=== PATIENT | male | born 1985 | race Caucasian/White ===

== ENCOUNTER 2022-11-26 10:05 | Outpatient (REF) | payer BC, SELFPAY | END 2022-11-26 10:06 | disposition home or self-care (01) | LOC: HO.LAB 10:05 | PROVIDERS: Visit Provider Nurse Practitioner Family | DX: Z13.89 Encounter for screening for other disorder (principal) ==

== ENCOUNTER 2022-12-01 07:03 | Outpatient (REF) | payer BC, OTHER, SELFPAY ==
[2022-12-01 11:31] LABS: MANUAL DIFF FLAG NO
[2022-12-01 11:41] LABS: Basophils Percent Auto 0.4 % (0-2); Eosinophils Absolute Auto 0.1 X10*3/uL (0.0-0.4); Eosinophils Percent Auto 1.2 % (0-4); Hematocrit 49.7 % (42.0-52.0); Hemoglobin 17.4 g/dl (14.0-18.0); Imm Gran Abs Auto 0.02 X10*3/uL (0.00-0.03); Imm Gran Pct Auto 0.3 % (0.0-0.4); Lymphocytes Absolute Auto 2.3 X10*3/uL (1.2-4.9); Lymphocytes Percent Auto 31.3 % (20-40); Mean Corpuscular Hemoglobin 29.7 pg (27.0-33.0); Mean Platelet Volume 9.3 fL (9.4-12.4); Monocytes Absolute Auto 0.7 X10*3/uL (0.1-1.2); Monocytes Percent Auto 9.4 % (2-11); Neutrophils Absolute Auto 4.1 x10*3/uL (2.0-8.3); Neutrophils Percent Auto 57.4 % (45-73); Platelet Count 271 X10*3/uL (160-400); Red Blood Count 5.85 X10*6/uL (4.60-5.80); Red Cell Distribution Width 12.9 % (11.0-16.0); White Blood Count 7.2 X10*3/uL (4.8-10.8)
[2022-12-01 12:01] LABS: Estimated Average Glucose 180 mg/dL; Hemoglobin A1c % 7.9 %
[2022-12-01 12:27] LABS: Anion Gap 11 (12-20)
[2022-12-01 12:32] LABS: Alanine Aminotransferase 57 U/L (0-40); Albumin Level 4.4 g/dL (3.5-5.0); Alkaline Phosphatase 80 U/L (39-117); Aspartate Amino Transferase 23 U/L (5-37); Bilirubin Total 1.1 mg/dL (0.0-1.0); Blood Urea Nitrogen 12 mg/dL (9-16); Calcium 9.2 mg/dL (8.4-10.2); Carbon Dioxide 27 mmol/L (22-29); Chloride 107 mmol/L (96-108); Cholesterol 195 mg/dL; Estimated Glomerular Filt Rate > 60; Glucose Fasting 124 mg/dL (60-99); HDL Cholesterol 32 mg/dL; LDL Cholesterol Calculated 137 mg/dl; Potassium 4.3 mmol/L (3.3-5.1); Sodium 141 mmol/L (135-145); Total Protein 6.6 g/dL (6.5-8.0); Triglycerides 131 mg/dL
== END 2022-12-01 07:04 | disposition home or self-care (01) ==
LOC: HO.WFDLDS 07:03
PROVIDERS: Visit Provider Nurse Practitioner Family
DX: E11.9 Type 2 diabetes mellitus without complications (principal)
CPT/HCPCS: 36415; 80053; 80061; 83036; 84443; 85025

== ENCOUNTER 2023-02-22 07:04 | Outpatient (REF) | payer BC, SELFPAY ==
[2023-02-22 12:01] LABS: Cholesterol 152 mg/dL; HDL Cholesterol 37 mg/dL; LDL Cholesterol Calculated 100 mg/dl; Triglycerides 77 mg/dL
== END 2023-02-22 07:05 | disposition home or self-care (01) ==
LOC: HO.WFDLDS 07:04
PROVIDERS: Visit Provider Nurse Practitioner Family
DX: E78.5 Hyperlipidemia, unspecified (principal)
CPT/HCPCS: 36415; 80061

== ENCOUNTER 2023-02-23 16:08 | Outpatient (AMB) | payer BC, SELFPAY ==
--- NOTE | 2023-02-23 16:10 | MHC.PC.OV ---
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: No Accompanied by: Self / Same As Patient Allergies Seasonal Allergies Allergy (Intermediate, Verified 02/23/23 16:24) Sneezing Medication List - Last Reconciled 02/23/23 by Emma Joshua CNP blood sugar diagnostic (FreeStyle Lite Strips) As directed TID blood-glucose meter (FreeStyle Lite Meter kit) As directed fenofibrate 120 mg PO DAILY 30 days flash glucose scanning reader ([employer] Estefanía 2 [place]) As directed flash glucose sensor (FreeStyle Estefanía 2 Sensor kit) As directed lancets (FreeStyle Lancets) As directed lisinopril 10 mg PO DAILY 30 days metformin 500 mg PO BID 30 days Tobacco use date assessed: 01/13/23 Dental Screening Dental Screen Date: 02/23/23 Did you have a dental visit in the last 12 months?: Yes Did you have a dental problem in the last 6 months where you did not have access to dental care?: No Was dental information given to patient?: Patient has dentist HPI HPI Comments History of Present Illness Details 37-year-old male presents for hypertension, diabetes, and hyperlipidemia follow-up. He notes he has been taking his medications as prescribed. 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 He walks daily for exercise and maintaining a healthy diet. [facility] Medical History GERD (gastroesophageal reflux disease) IBS (irritable bowel syndrome) No family history of mental disorder Peptic ulcer Sinusitis Type 2 diabetes mellitus Surgical History No pertinent past surgical history Family History Father Hypertension Cardiovascular disease Paternal Grandfather Hypertension Maternal Grandfather Clotting disorder Social History Housing: House Alcohol intake: never Patient Tobacco Use Status: Former Tobacco user Cigarettes Per Day: 10 e-Cigarette/Vaping Use: Former Use service: No Current occupational status: employed Current occupation: [employer] Cognitive needs: No Hearing needs: No Vision needs: No (newly dx T2DM) Questionnaire Thrive Questionnaire Date Thrive assessed: 11/26/22 SANDY-7 AMB Questionnaire SANDY-7 Date SANDY - 7 assessed: 11/26/22 Source: Developed by Drs. Jameson Mina, Edna Hudson, Enio Egan and colleagues, with an educational mitra from [employer]. Review of Systems Const Details: Const Denies chills, Denies fatigue, Denies fever(s), Denies headache(s) and Denies weakness ENT Denies dizziness and Denies headache(s) Card Denies chest pain, Denies lightheadedness, Denies dyspnea and Denies other (Palpitations) Resp Denies cough, Denies dyspnea, Denies wheezing and Denies other ( shortness of breath) GI Denies abdominal pain, Denies melena, Denies hematochezia, Denies change in bowel habits, Denies dyspepsia and Denies nausea Denies hematuria and Denies dysuria Musc Denies abnormal gait, Denies myalgias, Denies arthralgias, Denies numbness and Denies tingling Skin/Breast Denies rash, Denies unusual bruising and Denies wounds Neuro Denies abnormal gait, Denies dizziness, Denies headache(s), Denies memory loss, Denies numbness, Denies Sensory deficit (Neuro), Denies tingling and Denies weakness Psych Denies anxiety and Denies depression Endo Denies cold intolerance, Denies fatigue, Denies heat intolerance, Denies polydipsia and Denies polyuria Aller/Immun Denies wheezing Physical exam (Primary Care) Vital Signs: Last Vital Signs Pulse 72 02/23/23 16:12 BP 120/70 02/23/23 16:12 BMI result Body Mass Index 32.7 Tobacco/Smoking Status: Tobacco use Status Tobacco use date assessed 01/13/23 02/23/23 16:11 Patient Tobacco Use Status Former Tobacco user 02/23/23 16:11 e-Cigarette/Vaping Use Former Use 02/23/23 16:11 Thrive Assessment: Date of Thrive Assessment Date Thrive assessed 11/26/22 02/23/23 16:11 Const Other: General: no acute distress and well developed Nutritional Appearance: well nourished Orientation/consciousness: patient oriented x3 [facility] Head: Yes normocephalic and Yes atraumatic Eyes General: appearance normal, both eyes and all related structures Pupils: Equal, round and reactive pupils present EOM: EOMs intact bilaterally Resp Effort & Inspection: normal respiratory effort Auscultation: clear to auscultation bilaterally Cardio Rate: regular rate Rhythm: regular rhythm Heart sounds: S1 normal heart sound present, S2 normal heart sound present, no gallops, no murmurs and no rubs GI Palpation (GI): No Abdominal aortic bruit present, Soft to palpation, nontender, No hepatosplenomegaly present and No Rebound tenderness present Auscultation: normal bowel sounds General: Yes no CVA tenderness Back/Spine/Pelvis Back: no CVA tenderness Cervical Spine: cervical ROM normal and No Cervical spine tenderness Thoracic/Lumbar Spine: thoraco-lumbar ROM normal, No pain with thoraco-lumbar ROM, No thoracic spinal tenderness and No lumbar spinal tenderness Extrem General: Yes normal to inspection, No edema and No calf tenderness Skin General: warm and dry. Normal skin color. Normal skin turgor Lesions: no lesions Rashes: no rashes Trauma: no lacerations or abrasions Wounds: no wounds Nails: normal Neuro General: patient oriented x3, gait normal and no focal neuro deficit Cranial nerves: Yes Equal, round and reactive pupils present Cognition (Neuro): normal cognition Gait exam (Neuro): Normal gait present Sensory Exam: No Sensory deficit (Neuro) Psych Affect: normal affect Results AMB Hemoglobin A1c AMB Hemoglobin A1c 5.5 % Last Edit by Kyle Reynoso CMA on 02/23/23 16:26 Assessment and Plan Assessment & Plan (1) Hypertension: Code(s): I10 - Essential (primary) hypertension Plan: Blood pressure is controlled, 120/70 Continue to take lisinopril as prescribed Low-sodium diet encouraged Follow-up in 3 months or return sooner with concerns or symptoms Verbalized understanding and agreed with treatment plan. 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 (3) Dyslipidemia: Code(s): E78.5 - Hyperlipidemia, unspecified Plan: His lipid levels have improved Current triglyceride and total cholesterol are normal LDL is 100, slightly above goal of less than 100 HDL is 37, improving Continue take fenofibrate as prescribed Advised to limit foods high in saturated fat and avoid foods high trans fat Routine exercise encouraged Advised to do fasting lipid panel blood work before next visit Follow-up in 3 months Verbalized understanding and agreed with treatment plan. Orders: Orders Lipid Panel 3 Months E78.5 - Hyperlipidemia, unspecified AMB Hemoglobin A1c Today E11.9 - Type 2 diabetes mellitus without complications, Z13.9 - Encounter for screening, unspecified AMB Hemoglobin A1c Today Z13.9 - Encounter for screening, unspecified Coding Level of Care Code Est Pt Level 3 (41383) Diagnoses Hypertension I10 Type 2 diabetes mellitus E11.9 Dyslipidemia E78.5 Time Spent (min) 25
[2023-02-23 16:12] VITALS: BP 120/70; PULSE 72; BMI 32.7
== END 2023-02-23 16:42 | disposition home or self-care (01) ==
PROVIDERS: PCP Nurse Practitioner Family; Visit Provider Nurse Practitioner Family
DX: I10 Essential (primary) hypertension (principal); E11.9 Type 2 diabetes mellitus without complications; E78.5 Hyperlipidemia, unspecified; Z13.9 Encounter for screening, unspecified
CPT/HCPCS: 83036; 99213

== ENCOUNTER 2023-05-23 07:07 | Outpatient (REF) | payer BC, SELFPAY ==
[2023-05-23 12:46] LABS: Cholesterol 150 mg/dL (<200); HDL Cholesterol 37 mg/dL (>40); LDL Cholesterol Calculated 96 mg/dL (<100); Triglycerides 85 mg/dL (<150)
== END 2023-05-23 07:08 | disposition home or self-care (01) ==
LOC: HO.WFDLDS 07:07
PROVIDERS: Visit Provider Nurse Practitioner Family
DX: E78.5 Hyperlipidemia, unspecified (principal)
CPT/HCPCS: 36415; 80061

== ENCOUNTER 2023-06-20 16:09 | Outpatient (AMB) | payer BC, SELFPAY ==
[2023-06-20 16:13] VITALS: BP 114/70; PULSE 81; RESP 13; TEMP 36.3; O2SAT 99; BMI 33.5
--- NOTE | 2023-06-20 16:13 | MHC.PC.OV ---
Vital Signs 06/20/23 16:13 Height 5 ft 10 in Weight 233 lb 4 oz BMI 33.5 BP 114/70 Blood Pressure Location Rt brachial Position Sitting Respiration 13 Pulse 81 Pulse Source Pulse Oximeter Temp 97.4 F Temp Source Temporal Artery Scan Pulse Oximetry (%) 99 Oxygen Delivery Method Room Air Intake Visit Reasons: f/u HTN, DM, dyslipidemia Mail Manager Required: No Accompanied by: Self / Same As Patient Allergies Seasonal Allergies Allergy (Intermediate, Verified 06/20/23 16:32) Sneezing Medication List - Last Reconciled 06/20/23 by Emma Joshua CNP blood sugar diagnostic (FreeStyle Lite Strips) As directed TID blood-glucose meter (FreeStyle Lite Meter kit) As directed fenofibrate 120 mg PO DAILY 30 days flash glucose sensor (FreeStyle Estefanía 2 Sensor kit) As directed lancets (FreeStyle Lancets) As directed 3x/day and prn lisinopril 10 mg PO DAILY 30 days metformin 500 mg PO BID 30 days Tobacco use date assessed: 01/13/23 Dental Screening Dental Screen Date: 06/20/23 Did you have a dental visit in the last 12 months?: Yes Did you have a dental problem in the last 6 months where you did not have access to dental care?: No Was dental information given to patient?: Patient has dentist HPI HPI Comments History of Present Illness Details 37-year-old male presents for hypertension, diabetes, and hyperlipidemia follow-up. He notes he has been taking his medications as prescribed with no adverse reaction. 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 He walks 5 miles daily for exercise and maintaining a healthy diet. He intends on starting cardio since his work schedule is now flexible. He denies acute symptoms at this time. He reports continued dry scab to the inside of both tips of his nares. Antibiotic ointment has not been effective for possible folliculitis. [facility] Medical History (Updated 06/20/23 @ 16:53 by Emma Joshua CNP) No family history of mental disorder Peptic ulcer GERD (gastroesophageal reflux disease) IBS (irritable bowel syndrome) Sinusitis Type 2 diabetes mellitus Surgical History H/O endoscopy H/O colonoscopy No pertinent past surgical history Family History Father Hypertension Cardiovascular disease Paternal Grandfather Hypertension Maternal Grandfather Clotting disorder Social History Housing: House Alcohol intake: never Patient Tobacco Use Status: Former Tobacco user Cigarettes Per Day: 10 e-Cigarette/Vaping Use: Former Use service: No Current occupational status: employed Current occupation: [employer] Cognitive needs: No Hearing needs: No Vision needs: No (newly dx T2DM) Questionnaire Thrive Questionnaire Date Thrive assessed: 11/26/22 SANDY-7 AMB Questionnaire SANDY-7 Date SANDY - 7 assessed: 11/26/22 Source: Developed by Drs. Jameson Mina, Edna Hudson, Enio Egan and colleagues, with an educational mitra from [employer] Review of Systems Const Details: Const Denies chills, Denies fatigue, Denies fever(s), Denies headache(s) and Denies weakness ENT Denies dizziness and Denies headache(s) Card Denies chest pain, Denies lightheadedness, Denies dyspnea and Denies other (Palpitations) Resp Denies cough, Denies dyspnea, Denies wheezing and Denies other ( shortness of breath) GI Denies abdominal pain, Denies melena, Denies hematochezia, Denies change in bowel habits, Denies dyspepsia and Denies nausea Denies hematuria and Denies dysuria Musc Denies abnormal gait, Denies myalgias, Denies arthralgias, Denies numbness and Denies tingling Skin/Breast Reports as per HPI Neuro Denies abnormal gait, Denies dizziness, Denies headache(s), Denies memory loss, Denies numbness, Denies Sensory deficit (Neuro), Denies tingling and Denies weakness Psych Denies anxiety, Denies depression, Denies memory loss Endo Denies cold intolerance, Denies fatigue, Denies heat intolerance, Denies polydipsia and Denies polyuria Aller/Immun Denies wheezing Physical exam (Primary Care) Vital Signs: Last Vital Signs Temp 97.4 F 06/20/23 16:13 Pulse 81 06/20/23 16:13 Resp 13 06/20/23 16:13 BP 114/70 06/20/23 16:13 Pulse Ox 99 06/20/23 16:13 Oxygen Delivery Method Room Air 06/20/23 16:13 BMI result Body Mass Index 33.5 Tobacco/Smoking Status: Tobacco use Status Tobacco use date assessed 01/13/23 06/20/23 16:23 Patient Tobacco Use Status Former Tobacco user 06/20/23 16:23 e-Cigarette/Vaping Use Former Use 06/20/23 16:23 Thrive Assessment: Date of Thrive Assessment Date Thrive assessed 11/26/22 06/20/23 16:23 Const Other: General: no acute distress and well developed Nutritional Appearance: well nourished Orientation/consciousness: patient oriented x3 [facility] Head: Yes normocephalic and Yes atraumatic Eyes General: appearance normal, both eyes and all related structures Pupils: Equal, round and reactive pupils present EOM: EOMs intact bilaterally Resp Effort & Inspection: normal respiratory effort Auscultation: clear to auscultation bilaterally Cardio Rate: regular rate Rhythm: regular rhythm Heart sounds: S1 normal heart sound present, S2 normal heart sound present, no gallops, no murmurs and no rubs GI Palpation (GI): No Abdominal aortic bruit present, Soft to palpation, nontender, No hepatosplenomegaly present and No Rebound tenderness present Auscultation: normal bowel sounds General: Yes no CVA tenderness Back/Spine/Pelvis Back: no CVA tenderness Cervical Spine: cervical ROM normal and No Cervical spine tenderness Thoracic/Lumbar Spine: thoraco-lumbar ROM normal, No pain with thoraco-lumbar ROM, No thoracic spinal tenderness and No lumbar spinal tenderness Extrem General: Yes normal to inspection, No edema and No calf tenderness Skin General: warm and dry. Normal skin color. Normal skin turgor Dry skin to the opening of the nares adjacent the nasal septum, no redness or drainage Neuro General: patient oriented x3, gait normal and no focal neuro deficit Cranial nerves: Yes Equal, round and reactive pupils present Cognition (Neuro): normal cognition Gait exam (Neuro): Normal gait present Sensory Exam: No Sensory deficit (Neuro) Psych Appearance: grossly normal Affect: normal affect Attitude: cooperative Thought process: Normal thought process present Assessment and Plan Assessment & Plan (1) Hypertension: Code(s): I10 - Essential (primary) hypertension Plan: Blood pressure is 114/70, within goal of less than 130/80 Continue with current treatment regimen Low-sodium diet encouraged Will continue to monitor Verbalized understanding and agreed with treatment plan (2) Dyslipidemia: Code(s): E78.5 - Hyperlipidemia, unspecified Plan: Recent LDL last month was 96, above goal of less than 70. The HDL was 37, slightly below goal of greater than 40 Fenofibrate as prescribed Advised to limit foods high in saturated fat and avoid foods high in trans fat Will recheck lipid levels in 6 months Verbalized understanding and agreed with treatment plan (3) Type 2 diabetes mellitus: Code(s): E11.9 - Type 2 diabetes mellitus without complications Plan: A1c today is 5.4%, within goal of less than 7.0%. Previous A1c was 5.5% Continue with current treatment regimen ADA diet and routine exercise encouraged Follow-up in 3 months return sooner with symptoms or concerns Verbalized understanding and agreed with treatment plan (4) Dry skin: Code(s): L85.3 - Xerosis cutis Plan: Dry skin to the opening of the nares adjacent the nasal septum, no redness or drainage Reports continued dry scab to the inside of both tips of his nares. Antibiotic ointment has not been effective for possible folliculitis Referred to dermatology Follow-up with worsening signs and symptoms Verbalized understanding and agreed with treatment plan Orders: Referrals Dermatology Referral L85.3 - Xerosis cutis Coding Level of Care Code Est Pt Level 4 (27067) Diagnoses Hypertension I10 Dyslipidemia E78.5 Type 2 diabetes mellitus E11.9 Dry skin L85.3
== END 2023-06-20 16:55 | disposition home or self-care (01) ==
PROVIDERS: PCP Nurse Practitioner Family; Visit Provider Nurse Practitioner Family
DX: E11.9 Type 2 diabetes mellitus without complications (principal)
CPT/HCPCS: 83036; 99214

== ENCOUNTER 2023-07-27 12:22 | Outpatient (AMB) | payer BC, SELFPAY ==
[2023-07-27 12:24] VITALS: BP 118/66; PULSE 70; RESP 13; O2SAT 97; BMI 33.3
--- NOTE | 2023-07-27 12:24 | MHC.PC.OV ---
Vital Signs 07/27/23 12:24 Height 5 ft 10 in Weight 232 lb BMI 33.3 BP 118/66 Blood Pressure Location Lt brachial Position Sitting Respiration 13 Pulse 70 Pulse Source Pulse Oximeter Pulse Oximetry (%) 97 Oxygen Delivery Method Room Air Intake Visit Reasons: CPE Intake Note: Patient is here for his physical today and he would like to mention he feels he has an irregular heartbeat. The heartbeat becomes strong although not painful. Patient would like to discuss prescription refills and not being able to obtain his prescriptions. Patient would like to discuss difficulty losing weight. Patient reports his A1C is under the threshold and he would like to switch to a weekly injectable. Patient would like to request an ENT referral for hearing concerns. Channel Layer Required: No Accompanied by: Self / Same As Patient Allergies Seasonal Allergies Allergy (Intermediate, Verified 07/27/23 12:47) Sneezing Medication List - Last Reconciled 07/27/23 by Emma Joshua CNP blood sugar diagnostic (FreeStyle Lite Strips) As directed TID blood-glucose meter (FreeStyle Lite Meter kit) As directed fenofibrate 120 mg PO DAILY 30 days flash glucose sensor (FreeStyle Estefanía 2 Sensor kit) As directed lancets (FreeStyle Lancets) As directed 3x/day and prn lisinopril 10 mg PO DAILY 90 days metformin 500 mg PO BID 30 days Tobacco use date assessed: 07/27/23 Dental Screening Dental Screen Date: 07/27/23 Did you have a dental visit in the last 12 months?: Yes Did you have a dental problem in the last 6 months where you did not have access to dental care?: No Was dental information given to patient?: Patient has dentist HPI HPI Comments History of Present Illness Details 37-year-old male presents for an extended physical exam He has history of diabetes, hypertension, and dyslipidemia He admits to taking his medications as prescribed without adverse reactions He notes that he has difficulty losing weight He denies acute symptoms at this time [facility] Medical History No family history of mental disorder Peptic ulcer GERD (gastroesophageal reflux disease) IBS (irritable bowel syndrome) Sinusitis Type 2 diabetes mellitus Surgical History H/O endoscopy H/O colonoscopy No pertinent past surgical history Family History Father Hypertension Cardiovascular disease Paternal Grandfather Hypertension Maternal Grandfather Clotting disorder Social History (Updated 07/27/23 @ 12:38 by Alma Duron CMA) Household Members: Spouse Housing: House 75 years or older and lives alone: No Alcohol intake: never Patient Tobacco Use Status: Former Tobacco user Cigarettes Per Day: 10 e-Cigarette/Vaping Use: Former Use service: No Current occupational status: employed Current occupation: [employer] Current occupational exposures/hazards: Yes Sexual orientation: Unable to collect Gender identity: Unable to collect Cognitive needs: No Hearing needs: No Vision needs: No (newly dx T2DM) Questionnaire PHQ-9 Over the last 2 weeks, how often have you been bothered by any of the following problems? 1. Little interest or pleasure in doing things: not at all 2. Feeling down, depressed, or hopeless: not at all 3. Trouble falling or staying asleep, or sleeping too much: not at all 4. Feeling tired or having little energy: not at all 5. Poor appetite or overeating: not at all 6. Feeling bad about yourself - or that you are a failure or have let yourself or your family down: not at all 7. Trouble concentrating on things, such as reading the newspaper or watching television: not at all 8. Moving or speaking so slowly that other people could have noticed. Or the opposite - being so fidgety or restless that you have been moving around a lot more than usual: not at all 9. Thoughts that you would be better off or of hurting yourself in some way: not at all Total score: 0 Depression Screening Interpretation: Negative Depression Screening Done: Yes 00037 - PHQ-9 Billing: Yes Source: Developed by Drs. Jameson Mina, Edna Hudson, Enio Egan and colleagues, with an educational mitra from [employer]. Thrive Questionnaire Date Thrive assessed: 07/27/23 I am a: Patient What is your living situation today?: I have a steady place to live Within the past 12 months, did the food you bought not last and you didn't have the money to get more?: Never true Within the past 12 months, did you worry whether your food would run out before you got money to buy more?: Never true Do you have trouble paying for medicines?: No Do you have trouble getting transportation to medical appointments?: No Do you have trouble paying your heating and electricity bill?: No Do you have trouble taking care of your child, family member or friend?: No Do you have trouble with day-to-day activities such as bathing, preparing meals, shopping, managing finances, etc.?: No Are you currently unemployed and looking for a job?: No Are you interested in more education?: No Please select the resources that you would like help with: None Currently or been in a relationship where the following occur: no concerns reported AUDIT C Alcohol Use Questionnaire (AUDIT-C) 1. How often do you have a drink containing alcohol?: Never 3. How often do you have six or more drinks on one occasion?: Never Total Score: 0 SANDY-7 AMB Questionnaire SANDY-7 Date SANDY - 7 assessed: 07/27/23 Feeling nervous, anxious, or on edge: 0 = Not at all Not being able to stop or control worryin = Not at all Worrying too much about different things: 0 = Not at all Trouble relaxin = Not at all Being so restless that it is hard to sit still: 0 = Not at all Becoming easily annoyed or irritable: 0 = Not at all Feeling afraid as if something awful might happen: 0 = Not at all Total SANDY-7 score (0-4 normal; 5-9 mild; 10-14 moderate; 15-21 severe): 0 Source: Developed by Drs. Jameson Mina, Edna Hudson, Enio Egan and colleagues, with an educational mitra from [employer]. SANDY-7 Assessment Billing SANDY-7 Assessment Tool: SANDY-7 Assessment 78275 Review of Systems Const Details: Denies chills, Denies fatigue, Denies fever(s), Denies headache(s) and Denies weakness HEENT Denies change in vision, Denies dizziness, Denies headache(s), Denies hearing loss, Denies nasal congestion, Denies sinus pain, Denies sinus pressure and Denies sore throat Card Denies chest pain, Denies lightheadedness, Denies dyspnea and Denies other (palpitations) Resp Denies cough, Denies dyspnea and Denies wheezing GI Denies abdominal pain, Denies melena, Denies hematochezia, Denies change in bowel habits, Denies dyspepsia and Denies nausea Denies hematuria and Denies dysuria Musc Denies abnormal gait, Denies myalgias, Denies arthralgias, Denies numbness and Denies tingling Skin/Breast Denies rash, Denies unusual bruising and Denies wounds Neuro Denies abnormal gait, Denies dizziness, Denies headache(s), Denies memory loss, Denies numbness, Denies Sensory deficit (Neuro), Denies tingling and Denies weakness Psych Denies anxiety, Denies depression and Denies memory loss Endo Denies cold intolerance, Denies fatigue, Denies heat intolerance, Denies polydipsia and Denies polyuria Alexander/Lymph Denies easy bleeding and Denies easy bruising Aller/Immun Denies wheezing Physical exam (Primary Care) Vital Signs: Last Vital Signs Pulse 70 07/27/23 12:24 Resp 13 07/27/23 12:24 BP 118/66 07/27/23 12:24 Pulse Ox 97 07/27/23 12:24 Oxygen Delivery Method Room Air 07/27/23 12:24 BMI result Body Mass Index 33.3 Tobacco/Smoking Status: Tobacco use Status Tobacco use date assessed 07/27/23 07/27/23 12:40 Patient Tobacco Use Status Former Tobacco user 07/27/23 12:40 e-Cigarette/Vaping Use Former Use 07/27/23 12:40 PHQ-9: PHQ-9 Score PHQ-9: Total score 0 07/27/23 12:40 Depression Screening Interpretation: Negative Thrive Assessment: Date of Thrive Assessment Date Thrive assessed 07/27/23 07/27/23 12:40 Currently or been in a relationship where the following occur: no concerns reported Const Other: General: no acute distress, well developed, alert and awake Nutritional Appearance: well nourished Orientation/consciousness: patient oriented x3 HENMT Head: Yes normocephalic and Yes atraumatic Ears: hearing grossly normal bilaterally and TM's normal bilaterally General nose exam: Normal external nose present and Normal nares present Mouth: Normal oral and palatal mucosa present and moist mucous membranes Teeth and gingiva: dentition normal Throat: Yes oropharynx normal Eyes Pupils: Equal, round and reactive pupils present and Pupil accommodation reflex normal EOM: EOMs intact bilaterally Neck Neck: Yes normal visual inspection, Yes no lymphadenopathy and Yes trachea midline Thyroid: Thyroid normal Carotids: no bruits Lymphatic: no lymphadenopathy noted Chest Chest palpation & inspection: normal inspection of the chest Resp Effort & Inspection: normal respiratory effort Auscultation: clear to auscultation bilaterally Cardio Rate: regular rate Rhythm: regular rhythm Heart sounds: S1 normal heart sound present, S2 normal heart sound present, no gallops, no murmurs and no rubs Bruits: no abdominal aortic bruits and no carotid bruits GI Palpation (GI): No Abdominal aortic bruit present, Soft to palpation, nontender, No hepatosplenomegaly present and No Rebound tenderness present Auscultation: normal bowel sounds General: Yes no CVA tenderness Back/Spine/Pelvis Back: no CVA tenderness Cervical Spine: cervical ROM normal and No Cervical spine tenderness Thoracic/Lumbar Spine: thoraco-lumbar ROM normal, No pain with thoraco-lumbar ROM, No thoracic spinal tenderness and No lumbar spinal tenderness Skin General: warm and dry. Normal skin color. Normal skin turgor Lesions: no lesions Rashes: no rashes Trauma: no lacerations or abrasions Wounds: no wounds Nails: normal Neuro General: patient oriented x3, gait normal and CN's II-XI intact bilaterally Cranial nerves: Yes Equal, round and reactive pupils present Cognition (Neuro): normal cognition Gait exam (Neuro): Normal gait present Motor exam (neuro): 5/5 motor strength present throughout Sensory Exam: No Sensory deficit (Neuro) Deep tendon reflexes (DTR's): Right patellar reflex intensity grade: 2+ and Left patellar reflex intensity grade: 2+ Extrem General: Yes normal to inspection, No edema and No calf tenderness Psych Appearance: grossly normal Affect: normal affect Attitude: cooperative Thought process: Normal thought process present Assessment and Plan Assessment & Plan (1) Normal physical examination, routine: Code(s): Z00.00 - Encounter for general adult medical examination without abnormal findings Plan: No significant physical restrictions or limitations noted Lifestyle changes including healthy diet and routine exercise encouraged Follow-up next month for diabetes and hypertension Return sooner with symptoms or concerns Verbalized understanding and agreed with treatment plan (2) Obesity (BMI 30-39.9): Code(s): E66.9 - Obesity, unspecified Plan: Difficulty losing weight He currently weighs 232 lb, BMI is 33.3 Healthy diet and routine exercise encouraged Referred to with management Follow-up with symptoms or concerns Verbalized understanding and agreed with treatment plan Orders: Referrals Medical Weight Management Referral E66.9 - Obesity, unspecified Medications: Refilled fenofibrate 120 mg PO DAILY 30 tabs 3RF 30 days flash glucose sensor (FreeStyle Estefanía 2 Sensor kit) As directed 2 ea 2RF E11.9 - Type 2 diabetes mellitus without complications Coding Level of Care Code Est Pt Prev Care 18-39y(13180) Diagnoses Normal physical examination, routine Z00.00 Obesity (BMI 30-39.9) E66.9 Additional Codes SANDY-7 Assessment Billing - SANDY-7 Assessment Tool: SANDY-7 Assessment [id number] ([id number])
== END 2023-07-27 13:03 | disposition home or self-care (01) ==
PROVIDERS: PCP Nurse Practitioner Family; Visit Provider Nurse Practitioner Family
DX: Z00.00 Encounter for general adult medical examination without abnormal findings (principal); E66.9 Obesity, unspecified; Z68.33 Body mass index [BMI] 33.0-33.9, adult
CPT/HCPCS: 99395

== ENCOUNTER 2023-08-02 13:13 | Outpatient (AMB) | payer BC, SELFPAY ==
--- NOTE | 2023-08-02 13:11 | MHC.PC.OV ---
Intake Visit Reasons: + home covid test, fever, chills, muscle aches Intake Note: Patient is ready for the telehealth call. Barrel Rifler Button Required: No Accompanied by: Self / Same As Patient Allergies Seasonal Allergies Allergy (Intermediate, Verified 08/02/23 13:51) Sneezing Medication List - Last Reconciled 08/02/23 by Emma Joshua CNP blood sugar diagnostic (FreeStyle Lite Strips) As directed TID blood-glucose meter (FreeStyle Lite Meter kit) As directed fenofibrate 120 mg PO DAILY 30 days flash glucose sensor (FreeStyle Estefanía 2 Sensor kit) As directed lancets (FreeStyle Lancets) As directed 3x/day and prn lisinopril 10 mg PO DAILY 90 days metformin 500 mg PO BID 30 days Tobacco use date assessed: 07/27/23 HPI HPI Comments History of Present Illness Details Patient presents for a telehealth visit with complaints of mild sore throat, sinus pressure, nasal congestion, and body aches. Reports initial fever which subsided. His symptoms have been ongoing for almost 1 week. He reports positive home COVID-19 test last night. His girlfriend also tested positive last for COVID-19 night. He has missed a few days of work due his symptoms. He notes that his symptoms are improving. No current fever. No chills, headaches, shortness of breath, cough, or wheezing. [facility] Medical History No family history of mental disorder Peptic ulcer GERD (gastroesophageal reflux disease) IBS (irritable bowel syndrome) Sinusitis Type 2 diabetes mellitus Surgical History H/O endoscopy H/O colonoscopy No pertinent past surgical history Family History Father Hypertension Cardiovascular disease Paternal Grandfather Hypertension Maternal Grandfather Clotting disorder Social History (Updated 07/27/23 @ 12:38 by Alma Duron CMA) Household Members: Spouse Housing: House 75 years or older and lives alone: No Alcohol intake: never Patient Tobacco Use Status: Former Tobacco user Cigarettes Per Day: 10 e-Cigarette/Vaping Use: Former Use service: No Current occupational status: employed Current occupation: [employer] Current occupational exposures/hazards: Yes Sexual orientation: Unable to collect Gender identity: Unable to collect Cognitive needs: No Hearing needs: No Vision needs: No (newly dx T2DM) Questionnaire Thrive Questionnaire Date Thrive assessed: 07/27/23 SANDY-7 AMB Questionnaire SANDY-7 Date SANDY - 7 assessed: 07/27/23 Source: Developed by Drs. Jameson Mina, Edna Hudson, Enio Egan and colleagues, with an educational mitra from [employer]. Review of Systems Const Details: Const Denies chills, Denies fatigue, Denies fever(s), Denies headache(s) and Denies weakness ENT Reports as per HPI Card Denies chest pain, Denies lightheadedness, Denies dyspnea and Denies other (Palpitations) Resp Denies cough, Denies dyspnea, Denies wheezing and Denies other ( shortness of breath) GI Denies abdominal pain, Denies melena, Denies hematochezia, Denies change in bowel habits, Denies dyspepsia and Denies nausea Denies hematuria and Denies dysuria Musc Denies abnormal gait, Denies myalgias, Denies arthralgias, Denies numbness and Denies tingling Skin/Breast Denies rash, Denies unusual bruising and Denies wounds Neuro Denies abnormal gait, Denies dizziness, Denies headache(s), Denies memory loss, Denies numbness, Denies Sensory deficit (Neuro), Denies tingling and Denies weakness Psych Denies anxiety, Denies depression, Denies memory loss Endo Denies cold intolerance, Denies fatigue, Denies heat intolerance, Denies polydipsia and Denies polyuria Aller/Immun Denies wheezing Physical exam (Primary Care) Tobacco/Smoking Status: Tobacco use Status Tobacco use date assessed 07/27/23 08/02/23 13:13 Patient Tobacco Use Status Former Tobacco user 08/02/23 13:13 e-Cigarette/Vaping Use Former Use 08/02/23 13:13 Thrive Assessment: Date of Thrive Assessment Date Thrive assessed 07/27/23 08/02/23 13:13 Const Other: Telehealth visit. No physical exam Telehealth Telehealth Location of provider rendering services: practice address Location of patient: address on file Patient Identification confirmed using: Name, : Yes Telehealth method: voice only Patient verbally consented to treatment: Yes Patient verbally consented to billing insurance company: Yes Patient informed of any privacy concerns related to visit: Yes Assessment and Plan Assessment & Plan (1) COVID-19: Code(s): U07.1 - COVID-19 Plan: Patient reports positive home COVID-19 test last night Viral illness There is no antibiotic medication for viruses.? They must run their course.? Most average 5-7 days but 7-10 days is not uncommon and up to 14 days is still possible.? A cough is often the last symptom to resolve and this can last for weeks in some cases. Rest Hydrate well -? Drink plenty of fluids.? Especially water. Tylenol or ibuprofen for muscle aches, headache, fever/discomfort Work excuse letter provided. He may return to work on Tuesday Return for new or worsening symptoms Verbalized understanding and agreed with treatment plan. Coding Level of Care Code Tele Est Pt Level 2 (19969) Diagnoses COVID-19 U07.1 Time Spent (min) 15
== END 2023-08-02 14:20 | disposition home or self-care (01) ==
PROVIDERS: PCP Nurse Practitioner Family; Visit Provider Nurse Practitioner Family
DX: U07.1 COVID-19 (principal)
CPT/HCPCS: 99442

== ENCOUNTER 2023-09-20 09:52 | Outpatient (AMB) | payer BC, SELFPAY ==
--- NOTE | 2023-09-20 10:00 | A.OFFPC_ITS ---
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 Accompanied by: Self / Same As Patient Allergies Seasonal Allergies Allergy (Intermediate, Verified 09/20/23 10:14) Sneezing Medication List - Last Reconciled 09/20/23 by Emma Joshua CNP blood sugar diagnostic (FreeStyle Lite Strips) As directed TID blood-glucose meter (FreeStyle Lite Meter kit) As directed fenofibrate 120 mg PO DAILY 30 days flash glucose sensor (FreeStyle Estefanía 2 Sensor kit) As directed lancets (FreeStyle Lancets) As directed 3x/day and prn lisinopril 10 mg PO DAILY 90 days metformin 500 mg PO BID 30 days Tobacco use date assessed: 07/27/23 Dental Screening Dental Screen Date: 09/20/23 Did you have a dental visit in the last 12 months?: Yes Did you have a dental problem in the last 6 months where you did not have access to dental care?: No Was dental information given to patient?: Patient has dentist HPI HPI Comments History of Present Illness Details 37-year-old male presents for hypertensi on and diabetes follow-up He admits to taking his medications as described without adverse reactions He notes that he finds it difficult to lose weight despite maintaining healthy diet and exercising routinely He wants to switch to semaglutide instead of metformin for diabetes and weight management He notes that he has not been contacted by [facility] He denies history of pancreatitis or a personal or family history of medullary thyroid cancer or multiple endorcine neoplasia PFS Medical History No family history of mental disorder Peptic ulcer GERD (gastroesophageal reflux disease) IBS (irritable bowel syndrome) Sinusitis Type 2 diabetes mellitus Surgical History H/O endoscopy H/O colonoscopy No pertinent past surgical history Family History (Updated 09/20/23 @ 10:11 by Meghan Pagan MA) Father Hypertension Cardiovascular disease Paternal Grandfather Hypertension Maternal Grandfather Clotting disorder Social History (Updated 07/27/23 @ 12:38 by Alma Duron [facility]) Household Members: Spouse Housing: House 75 years or older and lives alone: No Alcohol intake: never Patient Tobacco Use Status: Former Tobacco user Cigarettes Per Day: 10 e-Cigarette/Vaping Use: Former Use service: No Current occupational status: employed Current occupation: [employer] Current occupational exposures/hazards: Yes Sexual orientation: Unable to collect Gender identity: Unable to collect Cognitive needs: No Hearing needs: No Vision needs: No (newly dx T2DM) Questionnaire Thrive Questionnaire Date Thrive assessed: 07/27/23 SANDY-7 AMB Questionnaire SANDY-7 Date SANDY - 7 assessed: 07/27/23 Source: Developed by Drs. Jameson Mina, Edna Hudson, Enio Egan and colleagues, with an educational mitra from [employer]. Review of Systems Const Details: Const Denies chills, Denies fatigue, Denies fever(s), Denies headache(s) and Denies weakness ENT Denies dizziness and Denies headache(s) Card Denies chest pain, Denies lightheadedness, Denies dyspnea and Denies other (Palpitations) Resp Denies cough, Denies dyspnea, Denies wheezing and Denies other ( shortness of breath) GI Denies abdominal pain, Denies melena, Denies hematochezia, Denies change in bowel habits, Denies dyspepsia and Denies nausea Denies hematuria and Denies dysuria Musc Denies abnormal gait, Denies myalgias, Denies arthralgias, Denies numbness and Denies tingling Skin/Breast Denies rash, Denies unusual bruising and Denies wounds Neuro Denies abnormal gait, Denies dizziness, Denies headache(s), Denies memory loss, Denies numbness, Denies Sensory deficit (Neuro), Denies tingling and Denies weakness Psych Denies anxiety, Denies depression, Denies memory loss Endo Denies cold intolerance, Denies fatigue, Denies heat intolerance, Denies polydipsia and Denies polyuria Aller/Immun Denies wheezing Physical exam (Primary Care) Vital Signs: Last Vital Signs Temp 97.6 F 09/20/23 10:01 Pulse 66 09/20/23 10:01 Resp 13 09/20/23 10:01 BP 106/70 09/20/23 10:01 Pulse Ox 99 09/20/23 10:01 Oxygen Delivery Method Room Air 09/20/23 10:01 BMI result Body Mass Index 32.4 Tobacco/Smoking Status: Tobacco use Status Tobacco use date assessed 07/27/23 09/20/23 10:00 Patient Tobacco Use Status Former Tobacco user 09/20/23 10:00 e-Cigarette/Vaping Use Former Use 09/20/23 10:00 Thrive Assessment: Date of Thrive Assessment Date Thrive assessed 07/27/23 09/20/23 10:00 Const Other: General: no acute distress and well developed Nutritional Appearance: well nourished Orientation/consciousness: patient oriented x3 HENMT Head: Yes normocephalic and Yes atraumatic Eyes General: appearance normal, both eyes and all related structures Pupils: Equal, round and reactive pupils present EOM: EOMs intact bilaterally Resp Effort & Inspection: normal respiratory effort Auscultation: clear to auscultation bilaterally Cardio Rate: regular rate Rhythm: regular rhythm Heart sounds: S1 normal heart sound present, S2 normal heart sound present, no gallops, no murmurs and no rubs GI Palpation (GI): No Abdominal aortic bruit present, Soft to palpation, nontender, No hepatosplenomegaly present and No Rebound tenderness present Auscultation: normal bowel sounds General: Yes no CVA tenderness Back/Spine/Pelvis Back: no CVA tenderness Cervical Spine: cervical ROM normal and No Cervical spine tenderness Thoracic/Lumbar Spine: thoraco-lumbar ROM normal, No pain with thoraco-lumbar ROM, No thoracic spinal tenderness and No lumbar spinal tenderness Extrem General: Yes normal to inspection, No edema and No calf tenderness Skin General: warm and dry. Normal skin color. Normal skin turgor Neuro General: patient oriented x3, gait normal and no focal neuro deficit Cranial nerves: Yes Equal, round and reactive pupils present Cognition (Neuro): normal cognition Gait exam (Neuro): Normal gait present Sensory Exam: No Sensory deficit (Neuro) Psych Appearance: grossly normal Affect: normal affect Attitude: cooperative Thought process: Normal thought process present Results AMB Hemoglobin A1c AMB Hemoglobin A1c 5.4 % Last Edit by Meghan Pagan MA on 09/20/23 10:15 Results Reviewed Results Reviewed: Laboratory Last Values Hgb A1c (Clinic) 5.4 % (4.0-6.0) 09/20/23 10:12 Assessment and Plan Assessment & Plan (1) Hypertension: Code(s): I10 - Essential (primary) hypertension Qualifiers: Hypertension type: primary hypertension Qualified Code(s): I10 - Essential (primary) hypertension Plan: Blood pressure was 106/70, within goal of less than 130/80 Continue current treatment regimen Low-sodium diet and routine exercise encouraged Follow-up in 3 months or return sooner with symptoms or concerns Verbalized understanding and agreed with treatment plan (2) Type 2 diabetes mellitus: Code(s): E11.9 - Type 2 diabetes mellitus without complications Plan: A1c today is 5.4%, within goal of less than 7.0%. Previous A1c was 5.4% Patient prefers semaglutide instead of metformin for diabetes and weight management Metformin discontinued Semaglutide 0.5 mg SC weekly ordered. Instructed on administration and adverse reactions to report. Advised to administer same day/time every week. May ask the pharmacist if he needs more instructions. May also send the on awake counselor to him if he requires more learning about semaglutide and administration ADA diet and routine exercise encouraged Recent LDL level is 96, above goal of less than 70. Will recheck lipid level. Advised to get fasting blood work done before his next visit Follow-up in 3 months Verbalized understanding and agreed with treatment plan Orders: Orders Lipid Panel 3 Months E78.5 - Hyperlipidemia, unspecified AMB Hemoglobin A1c Today E11.9 - Type 2 diabetes mellitus without complications Medications: New semaglutide 0.5 mg (0.736 mL) subcut QWEEK 30 days 3.68 mL 0RF Discontinued metformin Discontinued Reason: Doctor's Order 500 mg PO BID 30 days 60 tabs 3RF Coding Level of Care Code Est Pt Level 3 (37954) Diagnoses Primary hypertension I10 Hypertension type: primary hypertension Type 2 diabetes mellitus E11.9
[2023-09-20 10:01] VITALS: BP 106/70; PULSE 66; RESP 13; TEMP 36.4; O2SAT 99; BMI 32.4
== END 2023-09-20 10:36 | disposition home or self-care (01) ==
PROVIDERS: PCP Nurse Practitioner Family; Visit Provider Nurse Practitioner Family
DX: I10 Essential (primary) hypertension (principal); E11.9 Type 2 diabetes mellitus without complications
CPT/HCPCS: 83036; 99213

== ENCOUNTER 2023-11-23 09:41 | Outpatient (REF) | payer BC, SELFPAY ==
[2023-11-23 12:17] LABS: Cholesterol 129 mg/dL (<200); HDL Cholesterol 39 mg/dL (>40); LDL Cholesterol Calculated 77 mg/dL (<100); Triglycerides 69 mg/dL (<150)
== END 2023-11-23 09:42 | disposition home or self-care (01) ==
LOC: HO.WFDLDS 09:41
PROVIDERS: Visit Provider Nurse Practitioner Family
DX: E78.5 Hyperlipidemia, unspecified (principal)
CPT/HCPCS: 36415; 80061

== ENCOUNTER 2023-11-29 12:30 | Outpatient (AMB) | payer BC, SELFPAY ==
[2023-11-29 12:36] VITALS: BP 116/72; PULSE 72; TEMP 36.8; O2SAT 97; BMI 31.3
--- NOTE | 2023-11-29 12:36 | MHC.PC.OV ---
Vital Signs 11/29/23 12:36 Height 5 ft 10 in Weight 218 lb 6 oz BMI 31.3 BP 116/72 Blood Pressure Location Lt brachial Position Sitting Pulse 72 Pulse Source Pulse Oximeter Temp 98.3 F Temp Source Oral Pulse Oximetry (%) 97 Oxygen Delivery Method Room Air Intake Visit Reasons: f/u DM, HTN Intake Note: Patient is here to follow up on diabetes, and hypertension today. Allergies Seasonal Allergies Allergy (Intermediate, Verified 11/29/23 13:01) Sneezing Medication List - Last Reconciled 11/29/23 by Emma Joshua CNP blood sugar diagnostic (FreeStyle Lite Strips) As directed TID blood-glucose meter (FreeStyle Lite Meter kit) As directed fenofibrate 120 mg PO DAILY 30 days flash glucose sensor (FreeStyle Estefanía 2 Sensor kit) As directed lancets (FreeStyle Lancets) As directed 3x/day and prn lisinopril 10 mg PO DAILY 90 days semaglutide 0.5 mg (0.736 mL) subcut QWEEK 30 days Tobacco use date assessed: 07/27/23 Dental Screening Dental Screen Date: 09/20/23 HPI HPI Comments History of Present Illness Details 38-year-old male presents for hypertension and diabetes follow-up He admits to taking his medications He offers no complaints and denies acute symptoms at this time His last A1c was 5.4 on 09/20/2023 He has lost 7 lb since metformin was substituted with semaglutide PFSH Medical History No family history of mental disorder Peptic ulcer GERD (gastroesophageal reflux disease) IBS (irritable bowel syndrome) Sinusitis Type 2 diabetes mellitus Surgical History H/O endoscopy H/O colonoscopy No pertinent past surgical history Family History (Updated 09/20/23 @ 10:11 by MARGARETTE Fox) Father Hypertension Cardiovascular disease Paternal Grandfather Hypertension Maternal Grandfather Clotting disorder Social History (Updated 07/27/23 @ 12:38 by Alma Duron CMA) Household Members: Spouse Housing: House 75 years or older and lives alone: No Alcohol intake: never Patient Tobacco Use Status: Former Tobacco user Cigarettes Per Day: 10 e-Cigarette/Vaping Use: Former Use service: No Current occupational status: employed Current occupation: [employer] Current occupational exposures/hazards: Yes Sexual orientation: Unable to collect Gender identity: Unable to collect Cognitive needs: No Hearing needs: No Vision needs: No (newly dx T2DM) Questionnaire Thrive Questionnaire Date Thrive assessed: 07/27/23 SANDY-7 AMB Questionnaire SANDY-7 Date SANDY - 7 assessed: 07/27/23 Source: Developed by Drs. Jameson Mina, Edna Hudson, Enio Egan and colleagues, with an educational mitra from [employer]. Review of Systems Const Details: Const Denies chills, Denies fatigue, Denies fever(s), Denies headache(s) and Denies weakness ENT Denies dizziness and Denies headache(s) Card Denies chest pain, Denies lightheadedness, Denies dyspnea and Denies other (Palpitations) Resp Denies cough, Denies dyspnea, Denies wheezing and Denies other ( shortness of breath) GI Denies abdominal pain, Denies melena, Denies hematochezia, Denies change in bowel habits, Denies dyspepsia and Denies nausea Denies hematuria and Denies dysuria Musc Denies abnormal gait, Denies myalgias, Denies arthralgias, Denies numbness and Denies tingling Skin/Breast Denies rash, Denies unusual bruising and Denies wounds Neuro Denies abnormal gait, Denies dizziness, Denies headache(s), Denies memory loss, Denies numbness, Denies Sensory deficit (Neuro), Denies tingling and Denies weakness Psych Denies anxiety, Denies depression, Denies memory loss Endo Denies cold intolerance, Denies fatigue, Denies heat intolerance, Denies polydipsia and Denies polyuria Aller/Immun Denies wheezing Physical exam (Primary Care) Vital Signs: Last Vital Signs Temp 98.3 F 11/29/23 12:36 Pulse 72 11/29/23 12:36 BP 116/72 11/29/23 12:36 Pulse Ox 97 11/29/23 12:36 Oxygen Delivery Method Room Air 11/29/23 12:36 BMI result Body Mass Index 31.3 Tobacco/Smoking Status: Tobacco use Status Tobacco use date assessed 07/27/23 11/29/23 12:36 Patient Tobacco Use Status Former Tobacco user 11/29/23 12:36 e-Cigarette/Vaping Use Former Use 11/29/23 12:36 Thrive Assessment: Date of Thrive Assessment Date Thrive assessed 07/27/23 11/29/23 12:36 Const Other: General: no acute distress and well developed Nutritional Appearance: well nourished Orientation/consciousness: patient oriented x3 HENMT Head: Yes normocephalic and Yes atraumatic Eyes General: appearance normal, both eyes and all related structures Pupils: Equal, round and reactive pupils present EOM: EOMs intact bilaterally Resp Effort & Inspection: normal respiratory effort Auscultation: clear to auscultation bilaterally Cardio Rate: regular rate Rhythm: regular rhythm Heart sounds: S1 normal heart sound present, S2 normal heart sound present, no gallops, no murmurs and no rubs GI Palpation (GI): No Abdominal aortic bruit present, Soft to palpation, nontender, No hepatosplenomegaly present and No Rebound tenderness present Auscultation: normal bowel sounds General: Yes no CVA tenderness Back/Spine/Pelvis Back: no CVA tenderness Cervical Spine: cervical ROM normal and No Cervical spine tenderness Thoracic/Lumbar Spine: thoraco-lumbar ROM normal, No pain with thoraco-lumbar ROM, No thoracic spinal tenderness and No lumbar spinal tenderness Extrem General: Yes normal to inspection, No edema and No calf tenderness Skin General: warm and dry. Normal skin color. Normal skin turgor Neuro General: patient oriented x3, gait normal and no focal neuro deficit Cranial nerves: Yes Equal, round and reactive pupils present Cognition (Neuro): normal cognition Gait exam (Neuro): Normal gait present Sensory Exam: No Sensory deficit (Neuro) Psych Appearance: grossly normal Affect: normal affect Attitude: cooperative Thought process: Normal thought process present Assessment and Plan Assessment & Plan (1) Hypertension: Code(s): I10 - Essential (primary) hypertension Qualifiers: Hypertension type: primary hypertension Qualified Code(s): I10 - Essential (primary) hypertension Plan: Blood pressure is 160/72, within goal of less than 130/80 Continue to take lisinopril as prescribed Low-sodium diet encouraged Will continue to monitor Verbalized understanding and agreed with treatment plan (2) Type 2 diabetes mellitus: Code(s): E11.9 - Type 2 diabetes mellitus without complications Plan: His last A1c was 5.4 on 09/20/2023, within 90 days. Will not check A1c at this time Continue current treatment regimen Follow-up in 1 month or return sooner with symptoms or concerns Verbalized understanding and agreed with treatment plan Coding Level of Care Code Est Pt Level 4 (48951) Complex EM visit Add On G2211 Diagnoses Primary hypertension I10 Hypertension type: primary hypertension Type 2 diabetes mellitus E11.9
== END 2023-11-29 13:04 | disposition home or self-care (01) ==
PROVIDERS: PCP Nurse Practitioner Family; Visit Provider Nurse Practitioner Family
DX: I10 Essential (primary) hypertension (principal); E11.9 Type 2 diabetes mellitus without complications
CPT/HCPCS: 99214; G2211

== ENCOUNTER 2024-01-03 12:24 | Outpatient (AMB) | payer BC, SELFPAY ==
[2024-01-03 12:27] VITALS: BP 122/72; PULSE 74; RESP 16; O2SAT 98; BMI 30.1
--- NOTE | 2024-01-03 12:27 | MHC.PC.OV ---
Vital Signs 01/03/24 12:27 Height 5 ft 10 in Weight 209 lb 8 oz BMI 30.1 BP 122/72 Blood Pressure Location Lt brachial Respiration 16 Pulse 74 Pulse Source Pulse Oximeter Pulse Oximetry (%) 98 Oxygen Delivery Method Room Air Intake Visit Reasons: f/u A1C Intake Note: Patient is here to follow up on his A1C today. Allergies Seasonal Allergies Allergy (Intermediate, Verified 01/03/24 12:33) Sneezing Tobacco use date assessed: 01/03/24 Dental Screening Dental Screen Date: 09/20/23 HPI HPI Comments History of Present Illness Details 38-year-old male presents for diabetes follow-up He admits to taking his medications as prescribed without adverse reactions He offers no complaints and denies acute symptoms at this time His last A1c was 5.4 on 09/20/2023 He has lost 23 lb since metformin was substituted with semaglutide. He denies hypoglycemic episodes He is followed by Cardiology at [facility] yearly. His Fenofibrate was discontinued and was started on Atorvastatin at his last visit a week ago [facility] Medical History No family history of mental disorder Peptic ulcer GERD (gastroesophageal reflux disease) IBS (irritable bowel syndrome) Sinusitis Type 2 diabetes mellitus Surgical History H/O endoscopy H/O colonoscopy No pertinent past surgical history Family History Father Hypertension Cardiovascular disease Paternal Grandfather Hypertension Maternal Grandfather Clotting disorder Social History Household Members: Spouse Housing: House 75 years or older and lives alone: No Alcohol intake: never Patient Tobacco Use Status: Former Tobacco user Cigarettes Per Day: 10 e-Cigarette/Vaping Use: Former Use service: No Current occupational status: employed Current occupation: [employer] Current occupational exposures/hazards: Yes Sexual orientation: Unable to collect Gender identity: Unable to collect Cognitive needs: No Hearing needs: No Vision needs: No (newly dx T2DM) Questionnaire Thrive Questionnaire Date Thrive assessed: 07/27/23 SANDY-7 AMB Questionnaire SANDY-7 Date SANDY - 7 assessed: 07/27/23 Source: Developed by Drs. Jameson Mina, Edna Hudson, Enio Egan and colleagues, with an educational mitra from [employer]. Review of Systems Const Details: Const Denies chills, Denies fatigue, Denies fever(s), Denies headache(s) and Denies weakness ENT Denies dizziness and Denies headache(s) Card Denies chest pain, Denies lightheadedness, Denies dyspnea and Denies other (Palpitations) Resp Denies cough, Denies dyspnea, Denies wheezing and Denies other ( shortness of breath) GI Denies abdominal pain, Denies melena, Denies hematochezia, Denies change in bowel habits, Denies dyspepsia and Denies nausea Denies hematuria and Denies dysuria Musc Denies abnormal gait, Denies myalgias, Denies arthralgias, Denies numbness and Denies tingling Skin/Breast Denies rash, Denies unusual bruising and Denies wounds Neuro Denies abnormal gait, Denies dizziness, Denies headache(s), Denies memory loss, Denies numbness, Denies Sensory deficit (Neuro), Denies tingling and Denies weakness Psych Denies anxiety, Denies depression, Denies memory loss Endo Denies cold intolerance, Denies fatigue, Denies heat intolerance, Denies polydipsia and Denies polyuria Aller/Immun Denies wheezing Physical exam (Primary Care) Vital Signs: Last Vital Signs Pulse 74 01/03/24 12:27 Resp 16 01/03/24 12:27 BP 122/72 01/03/24 12:27 Pulse Ox 98 01/03/24 12:27 Oxygen Delivery Method Room Air 01/03/24 12:27 BMI result Body Mass Index 30.1 Tobacco/Smoking Status: Tobacco use Status Tobacco use date assessed 01/03/24 01/03/24 12:36 Patient Tobacco Use Status Former Tobacco user 01/03/24 12:28 e-Cigarette/Vaping Use Former Use 01/03/24 12:28 Thrive Assessment: Date of Thrive Assessment Date Thrive assessed 07/27/23 01/03/24 12:28 Const Other: General: no acute distress and well developed Nutritional Appearance: well nourished Orientation/consciousness: patient oriented x3 HENMT Head: Yes normocephalic and Yes atraumatic Eyes General: appearance normal, both eyes and all related structures Pupils: Equal, round and reactive pupils present EOM: EOMs intact bilaterally Resp Effort & Inspection: normal respiratory effort Auscultation: clear to auscultation bilaterally Cardio Rate: regular rate Rhythm: regular rhythm Heart sounds: S1 normal heart sound present, S2 normal heart sound present, no gallops, no murmurs and no rubs GI Palpation (GI): No Abdominal aortic bruit present, Soft to palpation, nontender, No hepatosplenomegaly present and No Rebound tenderness present Auscultation: normal bowel sounds General: Yes no CVA tenderness Back/Spine/Pelvis Back: no CVA tenderness Cervical Spine: cervical ROM normal and No Cervical spine tenderness Thoracic/Lumbar Spine: thoraco-lumbar ROM normal, No pain with thoraco-lumbar ROM, No thoracic spinal tenderness and No lumbar spinal tenderness Extrem General: Yes normal to inspection, No edema and No calf tenderness Skin General: warm and dry. Normal skin color. Normal skin turgor Neuro General: patient oriented x3, gait normal and no focal neuro deficit Cranial nerves: Yes Equal, round and reactive pupils present Cognition (Neuro): normal cognition Gait exam (Neuro): Normal gait present Sensory Exam: No Sensory deficit (Neuro) Psych Appearance: grossly normal Affect: normal affect Attitude: cooperative Thought process: Normal thought process present Results AMB Hemoglobin A1c AMB Hemoglobin A1c 4.7 % Last Edit by MARGARETTE Fox on 01/03/24 12:59 Assessment and Plan Assessment & Plan (1) Type 2 diabetes mellitus: Code(s): E11.9 - Type 2 diabetes mellitus without complications Plan: His A1c today is 4.7%, within goal of less than 7.0%. Previous A1c was 5.4% Will increase semaglutide to 1 mg every week to help with weight loss and overall glycemic control; advised to take as prescribed Encouraged to report hypoglycemic episodes ADA diet and routine exercise encouraged Follow-up in 3 months or sooner with symptoms or concerns Verbalized understanding and agreed with the treatment plan Orders: Orders AMB Hemoglobin A1c Today E11.9 - Type 2 diabetes mellitus without complications Medications: New semaglutide 1 mg (0.75 mL) subcut QWEEK 4 weeks 3 mL 3RF Discontinued semaglutide Discontinued Reason: Doctor's Order 0.5 mg (0.736 mL) subcut QWEEK 30 days 3.68 mL 2RF Coding Level of Care Code Est Pt Level 3 (78426) Diagnoses Type 2 diabetes mellitus E11.9
== END 2024-01-03 13:05 | disposition home or self-care (01) ==
PROVIDERS: PCP Nurse Practitioner Family; Visit Provider Nurse Practitioner Family
DX: E11.9 Type 2 diabetes mellitus without complications (principal)
CPT/HCPCS: 83036; 99213

== ENCOUNTER 2024-02-13 11:10 | Outpatient (AMB) | payer BC, SELFPAY ==
--- NOTE | 2024-02-13 11:14 | A.OFFPC_ITS ---
Vital Signs 02/13/24 11:19 Height 5 ft 10 in Weight 201 lb 4 oz BMI 28.9 BP 114/64 Blood Pressure Location Lt brachial Position Sitting Respiration 16 Pulse 72 Pulse Source Pulse Oximeter Temp 98 F Temp Source Oral Pulse Oximetry (%) 96 Oxygen Delivery Method Room Air Intake Visit Reasons: FollowUp Intake Note: patient here for follow up from ED [facility] Wall Taper Required: No Allergies Seasonal Allergies Allergy (Intermediate, Verified 02/13/24 11:17) Sneezing Tobacco use date assessed: 02/13/24 Dental Screening Dental Screen Date: 02/13/24 Did you have a dental visit in the last 12 months?: Yes Did you have a dental problem in the last 6 months where you did not have access to dental care?: No Was dental information given to patient?: Patient has dentist HPI HPI Comments History of Present Illness Details 38-year-old male presents for a hospital discharge follow-up He was evaluated at [facility] ED on 02/08/2023 for palpitations. He noted intermittent palpitations with associated chest discomfort and shortness of breaths for the past couple of years. EKG in the ED revealed normal sinus rhythm without abnormalities. EKG previous to taken on the patient's watch revealed intermittent PVCs which were deemed likely etiology of his symptoms. ACS was ruled out. Chest x-ray does not show any evidence of acute pulmonary or cardiovascular issues. Labs were all reassuring. His symptoms improved after fluid bolus. He was discharged to follow-up with his PCP. He notes that he has been experiencing multiple episodes of palpitations daily with associated shortness of breaths for the past 9 days. His symptoms are worse in the evening. He notes that he was drinking half a cup of coffee when he has stopped drinking. He reports current symptoms. He notes that he has been followed by [facility] for the past 3- 4 years. He was evaluated for similar symptoms in the past but nothing was found. He called to schedule an appointment when them but has not been contacted back. He would like a referral to a different assistant county attorney. [facility] Medical History No family history of mental disorder Peptic ulcer GERD (gastroesophageal reflux disease) IBS (irritable bowel syndrome) Sinusitis Type 2 diabetes mellitus Surgical History H/O endoscopy H/O colonoscopy No pertinent past surgical history Family History Father Hypertension Cardiovascular disease Paternal Grandfather Hypertension Maternal Grandfather Clotting disorder Social History Household Members: Spouse Housing: House 75 years or older and lives alone: No Alcohol intake: never Patient Tobacco Use Status: Former Tobacco user Cigarettes Per Day: 10 e-Cigarette/Vaping Use: Former Use service: No Current occupational status: employed Current occupation: [employer] Current occupational exposures/hazards: Yes Sexual orientation: Unable to collect Gender identity: Unable to collect Cognitive needs: No Hearing needs: No Vision needs: No (newly dx T2DM) Questionnaire PHQ-9 Over the last 2 weeks, how often have you been bothered by any of the following problems? 1. Little interest or pleasure in doing things: not at all 2. Feeling down, depressed, or hopeless: not at all 3. Trouble falling or staying asleep, or sleeping too much: several days 4. Feeling tired or having little energy: several days 5. Poor appetite or overeating: several days 6. Feeling bad about yourself - or that you are a failure or have let yourself or your family down: not at all 7. Trouble concentrating on things, such as reading the newspaper or watching television: not at all 8. Moving or speaking so slowly that other people could have noticed. Or the opposite - being so fidgety or restless that you have been moving around a lot more than usual: not at all 9. Thoughts that you would be better off or of hurting yourself in some way: not at all Total score: 3 [id number] - PHQ-9 Billing: Yes Source: Developed by Drs. Jameson Mina, Enio Simpson and colleagues, with an educational mitra from [employer]. Thrive Questionnaire Date Thrive assessed: 07/27/23 SANDY-7 AMB Questionnaire SANDY-7 Date SANDY - 7 assessed: 07/27/23 Source: Developed by Edna Harper Kurt Kroenke and colleagues, with an educational mitra from [employer]. Review of Systems Const Details: Const Denies chills, Denies fatigue, Denies fever(s), Denies headache(s) and Denies weakness ENT Denies dizziness and Denies headache(s) Card Denies chest pain, Denies lightheadedness, Reports dyspnea and Reports Palpitations Resp Denies cough, Denies dyspnea, Denies wheezing and Reports shortness of breath GI Denies abdominal pain, Denies melena, Denies hematochezia, Denies change in bowel habits, Denies dyspepsia and Denies nausea Denies hematuria and Denies dysuria Musc Denies abnormal gait, Denies myalgias, Denies arthralgias, Denies numbness and Denies tingling Skin/Breast Denies rash, Denies unusual bruising and Denies wounds Neuro Denies abnormal gait, Denies dizziness, Denies headache(s), Denies memory loss, Denies numbness, Denies Sensory deficit (Neuro), Denies tingling and Denies weakness Psych Denies anxiety, Denies depression, Denies memory loss Endo Denies cold intolerance, Denies fatigue, Denies heat intolerance, Denies polydipsia and Denies polyuria Aller/Immun Denies wheezing Physical exam (Primary Care) Vital Signs: Last Vital Signs Temp 98 F 02/13/24 11:19 Pulse 72 02/13/24 11:19 Resp 16 02/13/24 11:19 BP 114/64 02/13/24 11:19 Pulse Ox 96 02/13/24 11:19 Oxygen Delivery Method Room Air 02/13/24 11:19 BMI result Body Mass Index 28.9 Tobacco/Smoking Status: Tobacco use Status Tobacco use date assessed 02/13/24 02/13/24 11:18 Patient Tobacco Use Status Former Tobacco user 02/13/24 11:16 e-Cigarette/Vaping Use Former Use 02/13/24 11:16 PHQ-9: PHQ-9 Score PHQ-9: Total score 3 02/13/24 11:28 Thrive Assessment: Date of Thrive Assessment Date Thrive assessed 07/27/23 02/13/24 11:16 Const Other: General: no acute distress and well developed Nutritional Appearance: well nourished Orientation/consciousness: patient oriented x3 HENMT Head: Yes normocephalic and Yes atraumatic Eyes General: appearance normal, both eyes and all related structures Pupils: Equal, round and reactive pupils present EOM: EOMs intact bilaterally Resp Effort & Inspection: normal respiratory effort Auscultation: clear to auscultation bilaterally Cardio Rate: regular rate Rhythm: regular rhythm Heart sounds: S1 normal heart sound present, S2 normal heart sound present, no gallops, no murmurs and no rubs GI Palpation (GI): No Abdominal aortic bruit present, Soft to palpation, nontender, No hepatosplenomegaly present and No Rebound tenderness present Auscultation: normal bowel sounds General: Yes no CVA tenderness Back/Spine/Pelvis Back: no CVA tenderness Cervical Spine: cervical ROM normal and No Cervical spine tenderness Thoracic/Lumbar Spine: thoraco-lumbar ROM normal, No pain with thoraco-lumbar ROM, No thoracic spinal tenderness and No lumbar spinal tenderness Extrem General: Yes normal to inspection, No edema and No calf tenderness Skin General: warm and dry. Normal skin color. Normal skin turgor Neuro General: patient oriented x3, gait normal and no focal neuro deficit Cranial nerves: Yes Equal, round and reactive pupils present Cognition (Neuro): normal cognition Gait exam (Neuro): Normal gait present Sensory Exam: No Sensory deficit (Neuro) Psych Appearance: grossly normal Affect: normal affect Attitude: cooperative Thought process: Normal thought process present Office Procedures EKG Details: EKG revealed sinus rhythm with occasional premature ventricular complexes [id number], Complete Assessment and Plan Assessment & Plan (1) Palpitations: Code(s): R00.2 - Palpitations Plan: Persistent palpitations and shortness of breath x 9 days Lung sounds clear bilaterally, VSS, heart RRR EKG revealed sinus rhythm with occasional premature ventricular complexes Urgent referral made [place] [facility] [place] Follow-up as planned or sooner no worsening symptoms Verbalized understanding and agreed with the treatment plan (2) Shortness of breath: Code(s): R06.02 - Shortness of breath Plan: As above Orders: Orders AMB EKG-In Office Today R00.2 - Palpitations, R06.02 - Shortness of breath Referrals Cardiology Referral R00.2 - Palpitations, R06.02 - Shortness of breath Coding Level of Care Code Est Pt Level 4 (51990) Complex EM visit Add On G2211 Diagnoses Palpitations R00.2 Shortness of breath R06.02 CPT Codes EKG - CPT: 11706-[id number], Complete ([id number])
[2024-02-13 11:19] VITALS: BP 114/64; PULSE 72; RESP 16; TEMP 36.6; O2SAT 96; BMI 28.9
== END 2024-02-13 12:16 | disposition home or self-care (01) ==
PROVIDERS: PCP Nurse Practitioner Family; Visit Provider Nurse Practitioner Family
DX: R00.2 Palpitations (principal); R06.02 Shortness of breath
CPT/HCPCS: 93000; 99214

== ENCOUNTER 2024-03-19 10:01 | Outpatient (AMB) | payer BC, SELFPAY ==
--- NOTE | 2024-03-19 10:18 | MHC.OFFVIS ---
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/ Dr Joshua/ SOB/ palpitations Allergies Seasonal Allergies Allergy (Intermediate, Verified 02/13/24 11:17) Sneezing Medication List - Last Reconciled 03/19/24 by Nico Cota MD atorvastatin 10 mg PO DAILY blood sugar diagnostic (FreeStyle Lite Strips) As directed TID blood-glucose meter (FreeStyle Lite Meter kit) As directed flash glucose sensor (FreeStyle Estefanía 2 Sensor kit) As directed lancets (FreeStyle Lancets) As directed 3x/day and prn metoprolol succinate ER 25 mg PO DAILY semaglutide 1 mg (0.75 mL) subcut QWEEK 4 weeks HPI Comments Details: Jatin is here for consultation regarding premature ventricular contractions. Previously saw [facility] Cardiology but he would like to switch. He states that he has had palpitations for quite some time, going back a few years. It has been thought to be related to premature ventricular contractions. Over the last few months, palpitations are more profound. It has been bothering him a lot. He has been tried on beta-blockers but apparently that did not make any change. Otherwise, he does get some orthostatic symptoms like getting dizzy. He has lost about 80 lb or so in weight over the last couple of years. Diabetic on medications. Was on lisinopril for blood pressure but not taking it anymore. He has also had a calcium scoring CT scan which was mildly positive and he has been put on statins. [facility] Medical History No family history of mental disorder Peptic ulcer GERD (gastroesophageal reflux disease) IBS (irritable bowel syndrome) Sinusitis Type 2 diabetes mellitus Surgical History H/O endoscopy H/O colonoscopy No pertinent past surgical history Family History Father Hypertension Cardiovascular disease Paternal Grandfather Hypertension Maternal Grandfather Clotting disorder Social History (Updated 03/19/24 @ 10:22 by Beatrice Campbell) Household Members: Spouse Housing: House 75 years or older and lives alone: No Alcohol intake: never Patient Tobacco Use Status: Former Tobacco user Cigarettes Per Day: 10 e-Cigarette/Vaping Use: Former Use service: No Current occupational status: employed Current occupation: [employer] Current occupational exposures/hazards: Yes Sexual orientation: Unable to collect Gender identity: Unable to collect Cognitive needs: No Hearing needs: No Vision needs: No (newly dx T2DM) Review of Systems Const Denies weakness ENT Denies dizziness Card Denies chest pain, Denies chest pain with activity, Denies syncope, Denies rapid heart rate, Denies pedal edema, Denies edema, Denies leg edema, Denies lightheadedness, Reports palpitations, Reports dyspnea, Denies dyspnea on exertion and Denies orthopnea Resp Denies cough, Reports dyspnea and Denies dyspnea on exertion GI Denies hematochezia and Denies change in stool character Musc Denies abnormal gait, Denies muscle cramps, Denies muscle weakness, Denies numbness, Denies radiating pain into limb and Denies tingling Neuro Denies abnormal gait, Denies dizziness, Denies syncope, Denies numbness, Denies tingling and Denies weakness Endo Reports palpitations Physical Exam Vital Signs: Last Vital Signs Pulse 78 03/19/24 10:19 BP 118/62 03/19/24 10:19 BMI result Body Mass Index 28.8 Const General: comfortable and no acute distress Orientation/consciousness: patient oriented x3 HEENT Other: Unremarkable Head: Yes normal to inspection Neck Neck: Yes normal visual inspection Chest Chest palpation & inspection: normal inspection of the chest Resp Auscultation: clear to auscultation bilaterally Cardio Palpation: normal PMI Heart sounds: S1 normal heart sound present, S2 normal heart sound present, no gallops, no murmurs and no rubs GI Palpation (GI): Soft to palpation Back/Spine/Pelvis Other: unremarkable Skin General skin exam: no rashes or lesions noted Neuro General: patient oriented x3 Extrem General: Yes normal to inspection Psych Mental Status: mental status grossly normal Assessment & Plan Assessment & Plan (1) PVC (premature ventricular contraction): Code(s): I49.3 - Ventricular premature depolarization Category: Medical Plan Recent EKG shows sinus rhythm at 70/Min; occasional PVC; normal RI and corrected QT. He also had a recent calcium scoring CT scan from 11/2023. LAD score 12.5. Left main, circumflex, RCA-0. Total score is 12.5. He needs a comprehensive workup and we will get an echocardiogram for cardiac function; exercise EKG for assessing any improvement or worsening of PVCs with exercise; Holter monitor and home sleep study. If any significant PVC burden, then consider cardiac MRI. With regard to the mildly positive calcium score, he is already on statins. We had a long discussion about pathophysiology of PVCs, treatment options and all questions answered. As the beta-blockers are not really helping and he also has some orthostatic symptoms, we can stop that. Follow-up after testing. Orders: Orders CA echo transthoracic complete Today I49.3 - Ventricular premature depolarization CA stress test Today I49.3 - Ventricular premature depolarization RT home sleep study Today G47.33 - Obstructive sleep apnea (adult) (pediatric), I49.3 - Ventricular premature depolarization ECG 7 day holter monitor Today I49.3 - Ventricular premature depolarization Coding Level of Care Code New Pt Level 4 (27192) Diagnoses PVC (premature ventricular contraction) I49.3
[2024-03-19 10:19] VITALS: BP 118/62; PULSE 78; BMI 28.8
== END 2024-03-19 11:00 | disposition home or self-care (01) ==
PROVIDERS: PCP Nurse Practitioner Family; Visit Provider Internal Medicine
DX: I49.3 Ventricular premature depolarization (principal)
CPT/HCPCS: 99204

== ENCOUNTER → 2024-03-19 10:01 | Outpatient (BNVA) | payer BC, SELFPAY | PROVIDERS: PCP Nurse Practitioner Family; Visit Provider Internal Medicine ==

== ENCOUNTER 2024-04-09 11:33 | Outpatient (AMB) | payer BC, SELFPAY ==
--- NOTE | 2024-04-09 11:44 | MHC.PC.OV ---
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 Allergies Seasonal Allergies Allergy (Intermediate, Verified 04/09/24 12:35) Sneezing Medication List - Last Reconciled 04/09/24 by Emma Joshua CNP atorvastatin 10 mg PO DAILY 30 days blood sugar diagnostic (FreeStyle Lite Strips) As directed TID blood-glucose meter (FreeStyle Lite Meter kit) As directed flash glucose sensor (FreeStyle Estefanía 2 Sensor kit) As directed lancets (FreeStyle Lancets) As directed 3x/day and prn semaglutide 1 mg (0.75 mL) subcut QWEEK 4 weeks Tobacco use date assessed: 04/09/24 Dental Screening Dental Screen Date: 04/09/24 Did you have a dental visit in the last 12 months?: Yes Did you have a dental problem in the last 6 months where you did not have access to dental care?: No Was dental information given to patient?: Patient has dentist HPI HPI Comments History of Present Illness Details 38 y/o male presents for HTN and DM follow up He admits to taking atorvastatin and semaglutide as prescribed without adverse reactions He stopped taking metoprolol and lisinopril about a month ago due to low blood pressure readings and feeling of fainting upon waking up every morning; he has not experienced those symptoms since he stopped the medications He notes that he has been making lifestyle changes, including diet and exercise No acute symptoms at this time He is [place] [facility] [place] history of PVC PFSH Medical History No family history of mental disorder Peptic ulcer GERD (gastroesophageal reflux disease) IBS (irritable bowel syndrome) Sinusitis Type 2 diabetes mellitus Surgical History H/O endoscopy H/O colonoscopy No pertinent past surgical history Family History Father Hypertension Cardiovascular disease Paternal Grandfather Hypertension Maternal Grandfather Clotting disorder Social History (Updated 03/19/24 @ 10:22 by Beatrice Campbell) Household Members: Spouse Housing: House 75 years or older and lives alone: No Alcohol intake: never Patient Tobacco Use Status: Former Tobacco user Cigarettes Per Day: 10 e-Cigarette/Vaping Use: Former Use service: No Current occupational status: employed Current occupation: [employer] Current occupational exposures/hazards: Yes Sexual orientation: Unable to collect Gender identity: Unable to collect Cognitive needs: No Hearing needs: No Vision needs: No (newly dx T2DM) Questionnaire Thrive Questionnaire Date Thrive assessed: 07/27/23 SANDY-7 AMB Questionnaire SANDY-7 Date SANDY - 7 assessed: 07/27/23 Source: Developed by Drs. Jameson Mina, Edna Hudson, Enio Egan and colleagues, with an educational mitra from [employer] Review of Systems Const Details: Const Denies chills, Denies fatigue, Denies fever(s), Denies headache(s) and Denies weakness ENT Denies dizziness and Denies headache(s) Card Denies chest pain, Denies lightheadedness, Denies dyspnea and Denies other (Palpitations) Resp Denies cough, Denies dyspnea, Denies wheezing and Denies other ( shortness of breath) GI Denies abdominal pain, Denies melena, Denies hematochezia, Denies change in bowel habits, Denies dyspepsia and Denies nausea Denies hematuria and Denies dysuria Musc Denies abnormal gait, Denies myalgias, Denies arthralgias, Denies numbness and Denies tingling Skin/Breast Denies rash, Denies unusual bruising and Denies wounds Neuro Denies abnormal gait, Denies dizziness, Denies headache(s), Denies memory loss, Denies numbness, Denies Sensory deficit (Neuro), Denies tingling and Denies weakness Psych Denies anxiety, Denies depression, Denies memory loss Endo Denies cold intolerance, Denies fatigue, Denies heat intolerance, Denies polydipsia and Denies polyuria Aller/Immun Denies wheezing Physical exam (Primary Care) Vital Signs: Last Vital Signs Temp 98.0 F 04/09/24 11:52 Pulse 72 04/09/24 11:52 Resp 16 04/09/24 11:52 BP 110/74 04/09/24 11:52 Pulse Ox 97 04/09/24 11:52 Oxygen Delivery Method Room Air 04/09/24 11:52 BMI result Body Mass Index 29.6 Tobacco/Smoking Status: Tobacco use Status Tobacco use date assessed 04/09/24 04/09/24 11:54 Patient Tobacco Use Status Former Tobacco user 04/09/24 11:45 e-Cigarette/Vaping Use Former Use 04/09/24 11:45 Thrive Assessment: Date of Thrive Assessment Date Thrive assessed 07/27/23 04/09/24 11:45 Const Other: General: no acute distress and well developed Nutritional Appearance: well nourished Orientation/consciousness: patient oriented x3 HENMT Head: Yes normocephalic and Yes atraumatic Eyes General: appearance normal, both eyes and all related structures Pupils: Equal, round and reactive pupils present EOM: EOMs intact bilaterally Resp Effort & Inspection: normal respiratory effort Auscultation: clear to auscultation bilaterally Cardio Rate: regular rate Rhythm: regular rhythm Heart sounds: S1 normal heart sound present, S2 normal heart sound present, no gallops, no murmurs and no rubs GI Palpation (GI): No Abdominal aortic bruit present, Soft to palpation, nontender, No hepatosplenomegaly present and No Rebound tenderness present Auscultation: normal bowel sounds General: Yes no CVA tenderness Back/Spine/Pelvis Back: no CVA tenderness Cervical Spine: cervical ROM normal and No Cervical spine tenderness Thoracic/Lumbar Spine: thoraco-lumbar ROM normal, No pain with thoraco-lumbar ROM, No thoracic spinal tenderness and No lumbar spinal tenderness Extrem General: Yes normal to inspection, No edema and No calf tenderness Skin General: warm and dry. Normal skin color. Normal skin turgor Neuro General: patient oriented x3, gait normal and no focal neuro deficit Cranial nerves: Yes Equal, round and reactive pupils present Cognition (Neuro): normal cognition Gait exam (Neuro): Normal gait present Sensory Exam: No Sensory deficit (Neuro) Psych Appearance: grossly normal Affect: normal affect Attitude: cooperative Thought process: Normal thought process present Results AMB Hemoglobin A1c AMB Hemoglobin A1c 4.9 % Last Edit by Suzi Mcginnis on 04/09/24 13:45 Assessment and Plan Assessment & Plan (1) Hypertension: Code(s): I10 - Essential (primary) hypertension Qualifiers: Hypertension type: primary hypertension Qualified Code(s): I10 - Essential (primary) hypertension Plan: Blood pressure is 110/74, within goal of less than 130/80 He stopped taking lisinopril and metoprolol a month ago due to adverse reactions such as low blood pressure readings and feeling of fainting in the mornings His blood pressure is currently controlled without antihypertensives Low-sodium diet and routine exercise encouraged Continue follow-up with cardiology as planned Follow-up in 3 months or sooner with symptoms or concerns Verbalized understanding and agreed with the plan (2) Type 2 diabetes mellitus: Code(s): E11.9 - Type 2 diabetes mellitus without complications Plan: A1c today is 4.9%, within goal of less than 7.0%. Previous A1c was 4.7% Continue current treatment regimen ADA diet and routine exercise encouraged Follow-up in 3 months Verbalized understanding and agreed with the plan Orders: Orders AMB Hemoglobin A1c Today Z13.9 - Encounter for screening, unspecified Coding Level of Care Code Est Pt Level 3 (87669) Diagnoses Primary hypertension I10 Hypertension type: primary hypertension Type 2 diabetes mellitus E11.9
[2024-04-09 11:52] VITALS: BP 110/74; PULSE 72; RESP 16; TEMP 36.7; O2SAT 97; BMI 29.6
== END 2024-04-09 12:44 | disposition home or self-care (01) ==
PROVIDERS: PCP Nurse Practitioner Family; Visit Provider Nurse Practitioner Family
DX: I10 Essential (primary) hypertension (principal); E11.9 Type 2 diabetes mellitus without complications; Z13.9 Encounter for screening, unspecified

== ENCOUNTER → 2024-04-09 11:33 | Outpatient (BNVA) | payer BC, SELFPAY | PROVIDERS: PCP Nurse Practitioner Family; Visit Provider Nurse Practitioner Family | DX: I10 Essential (primary) hypertension (principal); E11.9 Type 2 diabetes mellitus without complications | CPT/HCPCS: 83036 ==

== ENCOUNTER → 2024-04-17 07:48 | Outpatient (REF) | payer BC, SELFPAY ==
--- NOTE | 2024-04-17 07:52 | CA_ITS ---
Acquisition Time: 2024-04-17 08:55:07 Total Exercise Time: 00:11:08 Test Indications: PVC'S Medications: SEE H Protocol: JOSE Max HR: 184 BPM 101% of Pred: 182 BPM Max BP: 170/078 mmHG Max Work Load: 13.4 METS Exercise stress test exercise 11 mins 8 sec of Jose protocol 101% MPHR, without anginal symptoms, with isolated PVCs , with normotensive response to exercise with a drop from SBP 170 to 140 in early recovery walk, without EKG changes. Test reviewed with Dr. Cota. Referred By: Nico Cota Overread By: Rupinder Alaniz
--- NOTE | 2024-04-17 07:52 | CA_ITS ---
Transthoracic Echocardiogram Patient (Last, First, Middle): Jatin Leslie, Gender: Male Date of : 1985 Age: 38 Procedure Date: 04/17/2024 Procedure Type: Transthoracic Echocardiogram Location: OP Height: 177.8 cm Weight: 91.17 kg BSA: 2.09 m2 Heart Rate: 63 bpm BP: 108 / 68 mmHg Server Administrator: SB Referring MD: Nico Cota MD Symptoms: I49.3 - Ventricular premature depolarization Study Quality: Adequate w contrast ECG Rhythm: Sinus Conclusions: - The left ventricular systolic function is low normal. The calculated ejection fraction is 53% by biplane method. - No obvious valvular pathology seen on this study. Findings Procedure Information Contrast agent, definity, is being given per protocol without apparent complications. Left Ventricle Normal left ventricular cavity size. There is normal left ventricular wall thickness. The left ventricular systolic function is low normal. The calculated ejection fraction is 53% by biplane method. There is no evidence of regional wall motion abnormalities. Diastolic function is normal for age. Right Ventricle Normal right ventricular cavity size. There is low normal right ventricular systolic function. Atria Both atria are normal in size. Aortic Valve There is a normal trileaflet aortic valve. There is no aortic valve stenosis. There is no aortic valve regurgitation. Mitral Valve The mitral valve appears normal. There is no mitral valve regurgitation. There is no mitral valve stenosis. Pulmonic Valve The pulmonic valve is likely normal. Tricuspid Valve There is trace tricuspid valve regurgitation. Tricuspid regurgitation envelope is inadequate for calculation of right ventricular systolic pressure. Great Vessels The asc aorta and aortic arch are normal in size. Venous The inferior vena cava was not well visualized. Pericardium/Pleural There is no evidence of pericardial effusion. Prior Study Comparison No prior study available for comparison. Recommendations, Care & Conclusions No obvious valvular pathology seen on this study. Measurements 2D Linear Measurements IVSd: 0.70 0.6-0.9/0.6-1.0 cm LVIDd: 5.40 3.9-5.3/4.2-5.9 cm LVIDd Index: 2.58 2.4-3.2/2.2-3.1 cm/m2 LVIDs: 3.96 2.0-3.6 cm LVPWd: 0.87 0.7-1.1 cm LA Diam: 3.10 2.7-3.8/3.0-4.0 cm LAIDs Index: 1.48 1.5-2.3 cm/m2 LV Mass: 187.33 67-162/88-224 g LV Mass Index: 89.63 43-95/49-115 g/m2 LVOT Diam: 2.20 3.0+(-)1.3 cm 2D Systolic Function EF 4C: 56.00 >55% EF 2C: 51.40 >55% EF BiP: 53.10 >55% Mitral Valve MV Pk E: 0.78 MV PK A: 0.52 MV Decel Time: 123.00 E/A: 1.50 E'Lateral: 12.40 E'Medial: 10.90 E/E' Med: 7.10 E/E' Lat: 6.30 PHT: 36.00 MVA PHT: 6.[address] [place]: 6.33 Aortic Valve AoV Pk Isaac: 1.02 AoV Pk Grad: 4.00 WARREN: 3.22 LVOT LVOT Pk Isaac: 0.92 LVOT Mn Isaac: 0.61 LVOT VTI: 0.19 LVOT Pk Grad: 3.00 LVOT Mn Grad: 2.00 LVOT Diam: 2.20 LVOT Area: 3.80 Diastolic Function MV Pk E: 0.78 MV Pk A: 0.52 E/A: 1.50 E'Medial: 10.90 E/E' Med: 7.10 E' Laterial: 12.40 E/E' Lat: 6.30 Right Ventricle TAPSE (mm): 15.80 TVS' Isaac: 10.60 Tricuspid Valve RA Press: 3.00 Great Vessels Aorta Sinus of Valsalva: 3.30 2.0-3.5 cm Ao Asc: 2.60 2.1-3.4 cm Ao Arch: 2.20 Ao Desc: 1.10 Pulmonary Valve PV Pk Isaac: 1.04 Peak PV Grad: 4.00 Updated in Other Vendor System with Status of Final Nico Cota MD electronically signed on 04/19/2024 10:33:55 AM with status of Final
--- NOTE | 2024-04-17 07:52 | HM_ITS ---
Conclusion: 1. Patient was monitored for total period of 6 days and 23 hours 2. Baseline was normal sinus rhythm with average heart of 81 beats per minute 3. Occasional PVCs noted with total burden of 0.43% all of them isolated 4. 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
== END ==
LOC: HO.CARD 07:48
PROVIDERS: PCP Nurse Practitioner Family; Visit Provider Internal Medicine
DX: I49.3 Ventricular premature depolarization (principal)
CPT/HCPCS: 93017; 93242; 93306; Q9957

== ENCOUNTER → 2024-04-17 07:52 | Outpatient (BNV) | payer BC, SELFPAY | PROVIDERS: PCP Nurse Practitioner Family; Visit Provider Nurse Practitioner | DX: I49.3 Ventricular premature depolarization (principal) | CPT/HCPCS: 93016; 93018; 93244; 93320; 93325; 93350; 93352 ==

== ENCOUNTER → 2024-05-02 12:45 | Outpatient (REF) | payer BC, SELFPAY | LOC: HO.SL 12:45 | PROVIDERS: PCP Nurse Practitioner Family; Visit Provider Internal Medicine | DX: G47.33 Obstructive sleep apnea (adult) (pediatric) (principal); I49.3 Ventricular premature depolarization; R06.83 Snoring | CPT/HCPCS: 95806 ==

== ENCOUNTER → 2024-05-03 13:28 | Outpatient (BNV) | payer BC, SELFPAY | PROVIDERS: PCP Nurse Practitioner Family; Visit Provider Internal Medicine | DX: R06.83 Snoring (principal); R40.0 Somnolence | CPT/HCPCS: 95806 ==

== ENCOUNTER 2024-05-14 11:04 | Outpatient (AMB) | payer BC, SELFPAY ==
--- NOTE | 2024-05-14 11:12 | A.OFFVIS_ITS ---
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 Recently seen in consultation regarding premature ventricular contractions. In the past, has seen [facility] but would like to switch. He has had palpitations for many years. Thought to be from PVCs. He has tried beta-blockers but got dizzy and does not take it anymore. Has lost lot of weight-almost 80 lb in the last couple of years. Diabetic on medications. Was also on lisinopril but not on it anymore. Calcium scoring CT scan was mildly positive and taking statins for that. [facility] Medical History No family history of mental disorder Peptic ulcer GERD (gastroesophageal reflux disease) IBS (irritable bowel syndrome) Sinusitis Type 2 diabetes mellitus Surgical History H/O endoscopy H/O colonoscopy No pertinent past surgical history Family History Father Hypertension Cardiovascular disease Paternal Grandfather Hypertension Maternal Grandfather Clotting disorder Social History Household Members: Spouse Housing: House 75 years or older and lives alone: No Alcohol intake: never Patient Tobacco Use Status: Former Tobacco user Cigarettes Per Day: 10 e-Cigarette/Vaping Use: Former Use service: No Current occupational status: employed Current occupation: [employer] Current occupational exposures/hazards: Yes Sexual orientation: Unable to collect Gender identity: Unable to collect Cognitive needs: No Hearing needs: No Vision needs: No (newly dx T2DM) Review of Systems Const Denies chills, Denies fatigue, Denies fever(s), Denies weight gain and Denies weight loss ENT Denies dizziness Card Denies chest pain, Denies leg edema, Denies lightheadedness, Denies palpitations, Denies dyspnea on exertion, Denies orthopnea and Denies other Resp Denies cough and Denies dyspnea on exertion GI Denies hematochezia and Denies change in stool character Musc Denies abnormal gait, Denies muscle weakness, Denies numbness, Denies radiating pain into limb and Denies tingling Neuro Denies abnormal gait, Denies dizziness, Denies numbness and Denies tingling Endo Denies fatigue and Denies palpitations Physical Exam Vital Signs: Last Vital Signs Pulse 73 05/14/24 11:14 BP 108/72 05/14/24 11:14 BMI result Body Mass Index 29.6 Const General: comfortable and no acute distress Orientation/consciousness: patient oriented x3 HEENT Other: Unremarkable Head: Yes normal to inspection Neck Neck: Yes normal visual inspection Chest Chest palpation & inspection: normal inspection of the chest Resp Auscultation: clear to auscultation bilaterally Cardio Palpation: normal PMI Heart sounds: S1 normal heart sound present, S2 normal heart sound present, no gallops, no murmurs and no rubs GI Palpation (GI): Soft to palpation Back/Spine/Pelvis Other: unremarkable Skin General skin exam: no rashes or lesions noted Neuro General: patient oriented x3 Extrem General: Yes normal to inspection Psych Mental Status: mental status grossly normal Assessment & Plan Assessment & Plan (1) PVC (premature ventricular contraction): Code(s): I49.3 - Ventricular premature depolarization Category: Medical (2) Coronary artery calcification seen on CAT scan: Code(s): I25.10 - Atherosclerotic heart disease of [place] coronary artery without angina pectoris Category: Medical Plan Cardiac studies reviewed. EKG shows sinus rhythm at 70/Min; occasional PVC; normal GA and corrected QT. Calcium scoring CT scan from 11/2023. LAD score 12.5. Left main, circumflex, RCA-0. Total score is 12.5. Echocardiogram with low normal LVEF, 53%. Otherwise unremarkable. In the stress test, he was able to do 13.4 METS; no angina, increase in PVCs or EKG findings of ischemia. In the Holter, underlying rhythm is sinus with PVC burden of 0.43%. During sleep hours, evidence of junctional tachycardia, 1 episode. In the sleep study, excessive snoring, about 48% of the time but no obstructive sleep apnea. Findings discussed with patient. As the PVCs are of low burden, no specific management. Continue to lose weight but gradually. Excessive weight loss may make the blood pressure go too low as well. Hence do it slowly. With regard to the slightly positive calcium score, he is on statins. With further weight loss, hopefully the PVC burden will be even less and he would feel better. The snoring would also improve. Overall, cardiovascular risk will improve that way. We will check him in 1 year with an echocardiogram/Holter. He agrees with plan. He will call us with any concerns in the interim. Total time spent including review of data, counseling, documentation, coordination of care-32 minutes. Orders: Orders CA echo transthoracic complete 1 Year I49.3 - Ventricular premature depolarization ECG 3 day holter monitor 1 Year I49.3 - Ventricular premature depolarization Coding Level of Care Code Est Pt Level 4 (56460) Diagnoses PVC (premature ventricular contraction) I49.3 Coronary artery calcification seen on CAT scan I25.10
[2024-05-14 11:14] VITALS: BP 108/72; PULSE 73; BMI 29.6
== END 2024-05-14 11:33 | disposition home or self-care (01) ==
PROVIDERS: PCP Nurse Practitioner Family; Visit Provider Internal Medicine
DX: I49.3 Ventricular premature depolarization (principal); I25.10 Atherosclerotic heart disease of native coronary artery without angina pectoris
CPT/HCPCS: 99214

== ENCOUNTER → 2024-05-14 11:04 | Outpatient (BNVA) | payer BC, SELFPAY | PROVIDERS: PCP Nurse Practitioner Family; Visit Provider Internal Medicine ==

== ENCOUNTER 2024-06-12 07:53 | Outpatient (REF) | payer BC, SELFPAY ==
--- NOTE | ~2024-06-12 | FL_ITS ---
EXAMINATION: XR FLUOROSCOPY UPPER GI WITH AIR CLINICAL INFORMATION: Dysphagia COMPARISON: None TECHNIQUE: Fluoroscopic air contrast upper GI examination was performed utilizing standard techniques with thin and thick barium and effervescent granules. Numerous spot images were obtained. FINDINGS: Lateral cine images of the oropharynx and hypopharynx demonstrate normal swallow mechanism with normal epiglottic inversion and soft palate elevation. No tracheal penetration, glottic or subglottic aspiration identified. No nasopharyngeal reflux present. Hypopharyngeal structures appear normal without evidence of mass or diverticulum. There was no significant cricopharyngeal achalasia. Dual and single contrast images of the esophagus demonstrate normal caliber, contour, and mucosal pattern. No evidence of stricture, mass, or ulcerations identified. Esophageal peristalsis is mildly disorganized. No evidence of hiatus hernia identified. No significant gastroesophageal reflux was seen during the course of the examination and on reflux views. Dual contrast and single contrast images of the stomach demonstrated an elongated stomach and normal mucosal pattern without evidence of mass, ulceration, or other abnormality. Contrast freely passed into the gastric antrum and duodenal bulb without delay. Single and air-contrast images of the duodenal bulb demonstrate no abnormality. The duodenal sweep has a normal appearance, course, and mucosal fold appearance. The imaged proximal jejunum has a normal fold pattern and caliber. FLUOROSCOPY TIME: 3 minutes 19 seconds Number of Spot Images: 7 Number of Cine: 15 DOSE AREA PRODUCT: 2394 uGy-m2 (microgray-meter squared) FL/FL barium swallow with air IMPRESSION: 1. Mildly disorganized esophageal peristalsis, otherwise unremarkable examination. This procedure was performed by Edwin Leyva PA-C, and supervised by Dr. Alaniz Electronically signed by: Carlos Alberto Alaniz MD 06/13/2024 01:17 PM [facility] [place]
== END 2024-06-12 07:54 | disposition home or self-care (01) ==
LOC: HO.XRAY 07:53
PROVIDERS: Visit Provider Otolaryngology
DX: R13.10 Dysphagia, unspecified (principal)
CPT/HCPCS: 74221

== ENCOUNTER → 2024-06-12 07:54 | Outpatient (BNV) | payer BC, SELFPAY | PROVIDERS: Visit Provider Physician Assistant Surgical | DX: R13.10 Dysphagia, unspecified (principal) | CPT/HCPCS: 74246 ==

== ENCOUNTER 2024-07-11 09:51 | Outpatient (AMB) | payer BC, SELFPAY ==
--- NOTE | 2024-07-11 09:52 | MHC.PC.OV ---
Vital Signs 07/11/24 09:56 07/11/24 10:20 Height 5 ft 10 in Weight 215 lb 8 oz BMI 30.9 BP 136/87 116/80 Blood Pressure Location Lt brachial Lt brachial Position Sitting Sitting Respiration 13 Pulse 71 Pulse Source Pulse Oximeter Temp 98.1 F Temp Source Skin Pulse Oximetry (%) 98 Oxygen Delivery Method Room Air Intake Visit Reasons: 3 mos HTN, DM Intake Note: 3 month follow up for htn and dm Allergies Seasonal Allergies Allergy (Intermediate, Verified 07/11/24 10:05) Sneezing Medication List - Last Reconciled 07/11/24 by Emma Joshua CNP atorvastatin 10 mg PO DAILY 30 days blood sugar diagnostic (FreeStyle Lite Strips) As directed TID blood-glucose meter (FreeStyle Lite Meter kit) As directed flash glucose sensor (FreeStyle Estefanía 2 Sensor kit) As directed lancets (FreeStyle Lancets) As directed 3x/day and prn semaglutide 1 mg (0.75 mL) subcut QWEEK 4 weeks Tobacco use date assessed: 04/09/24 Dental Screening Dental Screen Date: 04/09/24 HPI HPI Comments History of Present Illness Details 38-year-old male presents for hypertension and diabetes follow-up. He admits to taking atorvastatin semaglutide as prescribed without adverse reactions. He is not currently on an antihypertensives. He stopped taking metoprolol and lisinopril about a month due to feeling of fainting upon waking up in the morning. He admits to making healthy lifestyle changes. He reports intermittent epigastric discomfort and nausea for the past month and a half. His symptoms resolved after eating, especially carbs. He has gained weight since his last visit due to his increased eating habit. He gained approximately 9 lb since his last visit. He notes history of GERD that was treated with omeprazole. He has been taking Tums and Pepto-Bismol with some relief of his symptoms. No changes in bowel habits. He requests an increase dose of semaglutide for weight management. [facility] Medical History (Updated 07/11/24 @ 10:25 by Emma Joshua CNP) No family history of mental disorder Peptic ulcer GERD (gastroesophageal reflux disease) IBS (irritable bowel syndrome) Sinusitis Type 2 diabetes mellitus Surgical History H/O endoscopy H/O colonoscopy No pertinent past surgical history Family History Father Hypertension Cardiovascular disease Paternal Grandfather Hypertension Maternal Grandfather Clotting disorder Social History Household Members: Spouse Housing: House 75 years or older and lives alone: No Alcohol intake: never Patient Tobacco Use Status: Former Tobacco user Cigarettes Per Day: 10 e-Cigarette/Vaping Use: Former Use service: No Current occupational status: employed Current occupation: [employer] Current occupational exposures/hazards: Yes Sexual orientation: Unable to collect Gender identity: Unable to collect Cognitive needs: No Hearing needs: No Vision needs: No (newly dx T2DM) Questionnaire PHQ-9 Over the last 2 weeks, how often have you been bothered by any of the following problems? 1. Little interest or pleasure in doing things: not at all 2. Feeling down, depressed, or hopeless: not at all 3. Trouble falling or staying asleep, or sleeping too much: not at all 4. Feeling tired or having little energy: not at all 5. Poor appetite or overeating: not at all 6. Feeling bad about yourself - or that you are a failure or have let yourself or your family down: not at all 7. Trouble concentrating on things, such as reading the newspaper or watching television: not at all 8. Moving or speaking so slowly that other people could have noticed. Or the opposite - being so fidgety or restless that you have been moving around a lot more than usual: not at all 9. Thoughts that you would be better off or of hurting yourself in some way: not at all Total score: 0 Depression Screening Interpretation: Negative Depression Screening Done: Yes 65530 - PHQ-9 Billing: Yes Source: Developed by Drs. Jameson Mina, Edna Hudson, Enio Egan and colleagues, with an educational mitra from [employer]. Thrive Questionnaire Date Thrive assessed: 07/11/24 I am a: Patient What is your living situation today?: I have a steady place to live Within the past 12 months, did the food you bought not last and you didn't have the money to get more?: Never true Within the past 12 months, did you worry whether your food would run out before you got money to buy more?: Never true Do you have trouble paying for medicines?: No Do you have trouble getting transportation to medical appointments?: No Do you have trouble paying your heating and electricity bill?: No Do you have trouble taking care of your child, family member or friend?: No Do you have trouble with day-to-day activities such as bathing, preparing meals, shopping, managing finances, etc.?: No Are you currently unemployed and looking for a job?: No Are you interested in more education?: No Please select the resources that you would like help with: None Currently or been in a relationship where the following occur: No concerns reported THRIVE Score: 0 AUDIT C Alcohol Use Questionnaire (AUDIT-C) 1. How often do you have a drink containing alcohol?: Monthly or less 2. How many drinks containing alcohol do you have on a typical day when you are drinking?: 1 or 2 3. How often do you have six or more drinks on one occasion?: Never Total Score: 1 SANDY-7 AMB Questionnaire SANDY-7 Date SANDY - 7 assessed: 07/11/24 Feeling nervous, anxious, or on edge: 0 = Not at all Not being able to stop or control worryin = Not at all Worrying too much about different things: 0 = Not at all Trouble relaxin = Not at all Being so restless that it is hard to sit still: 0 = Not at all Becoming easily annoyed or irritable: 0 = Not at all Feeling afraid as if something awful might happen: 0 = Not at all Total SANDY-7 score (0-4 normal; 5-9 mild; 10-14 moderate; 15-21 severe): 0 Source: Developed by Drs. Jameson Mina, Edna Hudson, Enio Egan and colleagues, with an educational mitra from [employer]. SANDY-7 Assessment Billing SANDY-7 Assessment Tool: SANDY-7 Assessment 32709 Review of Systems Const Details: Const Denies chills, Denies fatigue, Denies fever(s), Denies headache(s) and Denies weakness ENT Denies dizziness and Denies headache(s) Card Denies chest pain, Denies lightheadedness, Denies dyspnea and Denies other (Palpitations) Resp Denies cough, Denies dyspnea, Denies wheezing and Denies other ( shortness of breath) GI Reports as per HPI Denies hematuria and Denies dysuria Musc Denies abnormal gait, Denies myalgias, Denies arthralgias, Denies numbness and Denies tingling Skin/Breast Denies rash, Denies unusual bruising and Denies wounds Neuro Denies abnormal gait, Denies dizziness, Denies headache(s), Denies memory loss, Denies numbness, Denies Sensory deficit (Neuro), Denies tingling and Denies weakness Psych Denies anxiety, Denies depression, Denies memory loss Endo Denies cold intolerance, Denies fatigue, Denies heat intolerance, Denies polydipsia and Denies polyuria Aller/Immun Denies wheezing Physical exam (Primary Care) Vital Signs: Last Vital Signs Temp 98.1 F 07/11/24 09:56 Pulse 71 07/11/24 09:56 Resp 13 07/11/24 09:56 BP 136/87 07/11/24 09:56 Pulse Ox 98 07/11/24 09:56 Oxygen Delivery Method Room Air 07/11/24 09:56 BMI result Body Mass Index 30.9 Tobacco/Smoking Status: Tobacco use Status Tobacco use date assessed 04/09/24 07/11/24 09:53 Patient Tobacco Use Status Former Tobacco user 07/11/24 09:53 e-Cigarette/Vaping Use Former Use 07/11/24 09:53 PHQ-9: PHQ-9 Score PHQ-9: Total score 0 07/11/24 09:58 Depression Screening Interpretation: Negative Thrive Assessment: Date of Thrive Assessment Date Thrive assessed 07/11/24 07/11/24 09:53 Currently or been in a relationship where the following occur: No concerns reported Const Other: General: no acute distress and well developed Nutritional Appearance: well nourished Orientation/consciousness: patient oriented x3 HENMT Head: Yes normocephalic and Yes atraumatic Eyes General: appearance normal, both eyes and all related structures Pupils: Equal, round and reactive pupils present EOM: EOMs intact bilaterally Resp Effort & Inspection: normal respiratory effort Auscultation: clear to auscultation bilaterally Cardio Rate: regular rate Rhythm: regular rhythm Heart sounds: S1 normal heart sound present, S2 normal heart sound present, no gallops, no murmurs and no rubs GI Palpation (GI): No Abdominal aortic bruit present, Soft to palpation, nontender, No hepatosplenomegaly present and No Rebound tenderness present Auscultation: normal bowel sounds General: Yes no CVA tenderness Back/Spine/Pelvis Back: no CVA tenderness Cervical Spine: cervical ROM normal and No Cervical spine tenderness Thoracic/Lumbar Spine: thoraco-lumbar ROM normal, No pain with thoraco-lumbar ROM, No thoracic spinal tenderness and No lumbar spinal tenderness Extrem General: Yes normal to inspection, No edema and No calf tenderness Skin General: warm and dry. Normal skin color. Normal skin turgor Neuro General: patient oriented x3, gait normal and no focal neuro deficit Cranial nerves: Yes Equal, round and reactive pupils present Cognition (Neuro): normal cognition Gait exam (Neuro): Normal gait present Sensory Exam: No Sensory deficit (Neuro) Psych Appearance: grossly normal Affect: normal affect Attitude: cooperative Thought process: Normal thought process present Results AMB Hemoglobin A1c AMB Hemoglobin A1c 4.9 % Last Edit by Brian Doe MA on 07/11/24 10:08 Coding Level of Care Code Est Pt Level 4 (06434) Diagnoses Primary hypertension I10 Hypertension type: primary hypertension Type 2 diabetes mellitus E11.9 GERD (gastroesophageal reflux disease) K21.9 Encounter for weight management Z76.89 Laboratory tests ordered as part of a complete physical exam (CPE) Z00.00 Additional Codes SANDY-7 Assessment Billing - SANDY-7 Assessment Tool: SANDY-7 Assessment 30674 ([id number]) PHQ-9 - 71537 - PHQ-9 Billing: Yes ([id number]) Assessment & Plan Assessment & Plan (1) Hypertension: Code(s): I10 - Essential (primary) hypertension Category: Medical Qualifiers: Hypertension type: primary hypertension Qualified Code(s): I10 - Essential (primary) hypertension Plan: Resting blood pressure is 116/80, slightly above goal of less than 130/80. Low-sodium diet encouraged. Will continue to monitor. Advised to get lab work done a few days before his next visit. Follow-up in 2 months for an extended physical exam her labs review or sooner with symptoms or concern. (2) Type 2 diabetes mellitus: Code(s): E11.9 - Type 2 diabetes mellitus without complications Category: Medical Plan: A1c today is 4.9%, within goal of less than 7.0%.. Previous A1c was 4.9%. Continue current treatment regimen. ADA diet and routine exercise encouraged. Follow-up in 3 months. Verbalized understanding and agreed with the plan. (3) GERD (gastroesophageal reflux disease): Code(s): K21.9 - Gastro-esophageal reflux disease without esophagitis Category: Medical Plan: Intermittent epigastric discomfort and nausea for the past month and a half. Omeprazole ordered. Advised to take as prescribed. Follow-up with worsening or new symptoms. Verbalized understanding and agreed with treatment plan. (4) Encounter for weight management: Code(s): Z76.89 - Persons encountering health services in other specified circumstances Category: Medical Plan: He currently weighs 215 lb, BMI is 30.9. He gained 9 lb since his last visit. He has been increasing his carbs intake due to epigastric discomfort. Semaglutide increased to 2 mg weekly. Advised to take as prescribed. Will continue to monitor. Verbalized understanding and agreed with the plan. (5) Laboratory tests ordered as part of a complete physical exam (CPE): Code(s): Z00.00 - Encounter for general adult medical examination without abnormal findings Category: Medical Plan: Fasting labs ordered as part of a complete physical exam. Advised to fast for at least 10 hours before getting labs drawn. May drink water Verbalized understanding and agreed with treatment plan. Orders: Orders AMB Hemoglobin A1c Today Z13.9 - Encounter for screening, unspecified TSH reflex Free T4 Today Z00.00 - Encounter for general adult medical examination without abnormal findings Complete Blood Count Auto Diff Today Z00.00 - Encounter for general adult medical examination without abnormal findings Comprehensive [place]. Panel Fast Today Z00.00 - Encounter for general adult medical examination without abnormal findings Lipid Panel Today Z00.00 - Encounter for general adult medical examination without abnormal findings UA CC w/rflx Micro + Cult Today Z00.00 - Encounter for general adult medical examination without abnormal findings Microalbumin, Random (w Creat) Today Z00.00 - Encounter for general adult medical examination without abnormal findings Medications: New omeprazole 20 mg PO DAILY 90 days 90 caps 1RF Changed From semaglutide 1 mg (0.75 mL) subcut QWEEK 4 weeks 3 mL 3RF To semaglutide 2 mg (1.5 mL) subcut QWEEK 4 weeks 6 mL 1RF
[2024-07-11 09:56] VITALS: BP 136/87; PULSE 71; RESP 13; TEMP 36.7; O2SAT 98; BMI 30.9
[2024-07-11 10:20] VITALS: BP 116/80
== END 2024-07-11 10:20 | disposition home or self-care (01) ==
PROVIDERS: PCP Nurse Practitioner Family; Visit Provider Nurse Practitioner Family
DX: I10 Essential (primary) hypertension (principal); E11.9 Type 2 diabetes mellitus without complications; K21.9 Gastro-esophageal reflux disease without esophagitis; Z76.89 Persons encountering health services in other specified circumstances; Z00.00 Encounter for general adult medical examination without abnormal findings; Z13.9 Encounter for screening, unspecified

== ENCOUNTER → 2024-07-11 09:51 | Outpatient (BNVA) | payer BC, SELFPAY | PROVIDERS: PCP Nurse Practitioner Family; Visit Provider Nurse Practitioner Family | DX: E11.9 Type 2 diabetes mellitus without complications (principal); I10 Essential (primary) hypertension; K21.9 Gastro-esophageal reflux disease without esophagitis; Z76.89 Persons encountering health services in other specified circumstances | CPT/HCPCS: 83036; 96127 ==

== ENCOUNTER 2024-09-03 08:51 | Outpatient (REF) | payer BC, SELFPAY ==
[2024-09-03 11:08] LABS: MANUAL DIFF FLAG NO
[2024-09-03 11:10] LABS: Appearance Urine Clear; Color Urine Yellow; Glucose Urine UA Negative (Negative); Leukocyte Esterase Urine Negative (Negative); Nitrite Urine Negative (Negative); PH 5.5 (5.0-9.0); Urine Blood Negative (Negative); Urine Ketones Negative (Negative); Urine Protein Negative (Neg-Trace)
[2024-09-03 11:14] LABS: Basophils Percent Auto 0.6 % (0-2); Eosinophils Absolute Auto 0.1 X10*3/uL (0.0-0.4); Eosinophils Percent Auto 2.1 % (0-4); Hematocrit 48.9 % (42.0-52.0); Hemoglobin 17.6 g/dl (14.0-18.0); Imm Gran Abs Auto 0.01 X10*3/uL (0.00-0.03); Imm Gran Pct Auto 0.2 % (0.0-0.4); Lymphocytes Percent Auto 31.7 % (20-40); Mean Corpuscular Hemoglobin 30.5 pg (27.0-33.0); Mean Corpuscular Volume 84.7 fL (80.0-98.0); Monocytes Absolute Auto 0.5 X10*3/uL (0.1-1.2); Monocytes Percent Auto 7.8 % (2-11); Neutrophils Absolute Auto 3.6 x10*3/uL (2.0-8.3); Neutrophils Percent Auto 57.6 % (45-73); Platelet Count 247 X10*3/uL (160-400); Red Blood Count 5.77 X10*6/uL (4.60-5.80); Red Cell Distribution Width 12.7 % (11.0-16.0); White Blood Count 6.2 X10*3/uL (4.8-10.8)
[2024-09-03 11:34] LABS: Alanine Aminotransferase 59 U/L (0-40); Albumin Level 4.2 g/dL (3.5-5.0); Alkaline Phosphatase 77 U/L (39-117); Anion Gap 10 (12-20); Aspartate Amino Transferase 28 U/L (5-37); Bilirubin Total 0.7 mg/dL (0.0-1.0); Blood Urea Nitrogen 13 mg/dL (9-16); Carbon Dioxide 26 mmol/L (22-29); Chloride 112 mmol/L (96-108); Cholesterol 112 mg/dL (<200); Estimated Glomerular Filt Rate > 60; Glucose Fasting 86 mg/dL (60-99); HDL Cholesterol 38 mg/dL (>40); LDL Cholesterol Calculated 61 mg/dL (<100); Potassium 4.1 mmol/L (3.3-5.1); Sodium 144 mmol/L (135-145); Total Protein 6.8 g/dL (6.5-8.0); Triglycerides 67 mg/dL (<150)
[2024-09-03 11:40] LABS: Creatinine Urine 121.83 mg/dL; Microalbumin Urine < 5.0 mg/L
== END 2024-09-03 08:52 | disposition home or self-care (01) ==
LOC: HO.WFDLDS 08:51
PROVIDERS: Visit Provider Nurse Practitioner Family
DX: Z00.00 Encounter for general adult medical examination without abnormal findings (principal)
CPT/HCPCS: 36415; 80053; 80061; 81003; 82570; 84443; 85025

== ENCOUNTER 2024-09-10 10:05 | Outpatient (AMB) | payer BC, SELFPAY ==
--- NOTE | 2024-09-10 10:09 | MHC.PC.OV ---
Vital Signs 09/10/24 10:14 09/10/24 10:27 Height 5 ft 10 in Weight 220 lb 2 oz BMI 31.6 BP 130/76 120/80 Blood Pressure Location Lt brachial Lt brachial Position Sitting Sitting Respiration 14 Intake Visit Reasons: 2 mos CPE, labs review Intake Note: meds,labs Glass Technician Required: No Allergies Seasonal Allergies Allergy (Intermediate, Verified 09/10/24 10:17) Sneezing Medication List - Last Reconciled 09/10/24 by Paxton Calix RN atorvastatin 10 mg PO DAILY 30 days blood sugar diagnostic (FreeStyle Lite Strips) As directed TID blood-glucose meter (FreeStyle Lite Meter kit) As directed flash glucose sensor (FreeStyle Estefanía 2 Sensor kit) As directed lancets (FreeStyle Lancets) As directed 3x/day and prn omeprazole 20 mg PO DAILY 90 days semaglutide 2 mg (1.5 mL) subcut QWEEK 4 weeks Tobacco use date assessed: 04/09/24 Dental Screening Dental Screen Date: 04/09/24 HPI HPI Comments History of Present Illness Details 38-year-old male presents for an extended physical exam Acute issue(s) - None Past Medical History - Type 2 Diabetes, hypertension, dyslipidemia, GERD, peptic ulcer, IBS, obesity, elevated ALT level, PVC, coronary artery calcification seen on CAT scan, dry skin to nares, seborrheic dermatitis Social History - Nonsmoker. Vapes nicotine daily, about a year. Does not drink. Denies recreational drug use - Has been making healthy dietary choices. Exercises routinely. Generally sleep well Health maintenance - Last eye exam was 9 months ago : normal. He will sign a release for his PCP to obtain his eye record - Last dental visit was last week - Last tetanus vaccine unknown; received Tdap vaccine today - Up-to-date on the influenza vaccine Specialists - Dermatology - Ophthalmology - Cardiology - He saw dermatology last week and was prescribed clobetasol propionate BID PRN saborrheic dermatitis to head and face, and mupirocin BID PRN dry skin to nares [facility] Medical History (Updated 09/10/24 @ 10:53 by Emma Joshua CNP) No family history of mental disorder Peptic ulcer GERD (gastroesophageal reflux disease) IBS (irritable bowel syndrome) Sinusitis Type 2 diabetes mellitus Surgical History H/O endoscopy H/O colonoscopy No pertinent past surgical history Family History Father Hypertension Cardiovascular disease Paternal Grandfather Hypertension Maternal Grandfather Clotting disorder Social History Household Members: Spouse Housing: House 75 years or older and lives alone: No Alcohol intake: never Patient Tobacco Use Status: Former Tobacco user Cigarettes Per Day: 10 e-Cigarette/Vaping Use: Former Use service: No Current occupational status: employed Current occupation: [employer] Current occupational exposures/hazards: Yes Sexual orientation: Unable to collect Gender identity: Unable to collect Cognitive needs: No Hearing needs: No Vision needs: No (newly dx T2DM) Questionnaire PHQ-9 Over the last 2 weeks, how often have you been bothered by any of the following problems? 1. Little interest or pleasure in doing things: not at all 2. Feeling down, depressed, or hopeless: not at all 3. Trouble falling or staying asleep, or sleeping too much: not at all 4. Feeling tired or having little energy: not at all 5. Poor appetite or overeating: not at all 6. Feeling bad about yourself - or that you are a failure or have let yourself or your family down: not at all 7. Trouble concentrating on things, such as reading the newspaper or watching television: not at all 8. Moving or speaking so slowly that other people could have noticed. Or the opposite - being so fidgety or restless that you have been moving around a lot more than usual: not at all 9. Thoughts that you would be better off or of hurting yourself in some way: not at all Total score: 0 Depression Screening Interpretation: Negative Depression Screening Done: Yes Source: Developed by Drs. Jameson Mina, Edna Hudson, Enio Egan and colleagues, with an educational mitra from [employer]. Thrive Questionnaire Date Thrive assessed: 09/07/24 I am a: Patient What is your living situation today?: I have a steady place to live Within the past 12 months, did the food you bought not last and you didn't have the money to get more?: Never true Within the past 12 months, did you worry whether your food would run out before you got money to buy more?: Never true Do you have trouble paying for medicines?: No Do you have trouble getting transportation to medical appointments?: No Do you have trouble paying your heating and electricity bill?: No Do you have trouble taking care of your child, family member or friend?: No Do you have trouble with day-to-day activities such as bathing, preparing meals, shopping, managing finances, etc.?: No Are you currently unemployed and looking for a job?: No Are you interested in more education?: No Please select the resources that you would like help with: None Currently or been in a relationship where the following occur: No concerns reported THRIVE Score: 0 AUDIT C Alcohol Use Questionnaire (AUDIT-C) 1. How often do you have a drink containing alcohol?: Never 2. How many drinks containing alcohol do you have on a typical day when you are drinking?: 1 or 2 3. How often do you have six or more drinks on one occasion?: Never Total Score: 0 SANDY-7 AMB Questionnaire SANDY-7 Date SANDY - 7 assessed: 07/11/24 Feeling nervous, anxious, or on edge: 0 = Not at all Not being able to stop or control worryin = Not at all Worrying too much about different things: 0 = Not at all Trouble relaxin = Not at all Being so restless that it is hard to sit still: 0 = Not at all Becoming easily annoyed or irritable: 0 = Not at all Feeling afraid as if something awful might happen: 0 = Not at all Total SANDY-7 score (0-4 normal; 5-9 mild; 10-14 moderate; 15-21 severe): 0 Source: Developed by Drs. Jameson Mina, Edna Hudson, Enio Egan and colleagues, with an educational mitra from [employer]. Review of Systems Const Details: Denies chills, Denies fatigue, Denies fever(s), Denies headache(s) and Denies weakness HEENT Denies change in vision, Denies dizziness, Denies headache(s), Denies hearing loss, Denies nasal congestion, Denies sinus pain, Denies sinus pressure and Denies sore throat Card Denies chest pain, Denies lightheadedness, Denies dyspnea and Denies other (palpitations) Resp Denies cough, Denies dyspnea and Denies wheezing GI Denies abdominal pain, Denies melena, Denies hematochezia, Denies change in bowel habits, Denies dyspepsia and Denies nausea Denies hematuria and Denies dysuria Musc Denies abnormal gait, Denies myalgias, Denies arthralgias, Denies numbness and Denies tingling Skin/Breast Denies rash, Denies unusual bruising and Denies wounds Neuro Denies abnormal gait, Denies dizziness, Denies headache(s), Denies memory loss, Denies numbness, Denies Sensory deficit (Neuro), Denies tingling and Denies weakness Psych Denies anxiety, Denies depression and Denies memory loss Endo Denies cold intolerance, Denies fatigue, Denies heat intolerance, Denies polydipsia and Denies polyuria Alexander/Lymph Denies easy bleeding and Denies easy bruising Aller/Immun Denies wheezing Physical exam (Primary Care) Vital Signs: Last Vital Signs Resp 14 09/10/24 10:14 BP 120/80 09/10/24 10:27 BMI result Body Mass Index 31.6 Tobacco/Smoking Status: Tobacco use Status Tobacco use date assessed 04/09/24 09/10/24 10:11 Patient Tobacco Use Status Former Tobacco user 09/10/24 10:11 e-Cigarette/Vaping Use Former Use 09/10/24 10:11 PHQ-9: PHQ-9 Score PHQ-9: Total score 0 09/10/24 10:48 Depression Screening Interpretation: Negative Thrive Assessment: Date of Thrive Assessment Date Thrive assessed 09/07/24 09/10/24 10:11 Currently or been in a relationship where the following occur: No concerns reported Const Other: General: no acute distress, well developed, alert and awake Nutritional Appearance: well nourished Orientation/consciousness: patient oriented x3 HENMT Head: Yes normocephalic and Yes atraumatic Ears: hearing grossly normal bilaterally and TM's normal bilaterally General nose exam: Normal external nose present and Normal nares present Mouth: Normal oral and palatal mucosa present and moist mucous membranes Teeth and gingiva: dentition normal Throat: Yes oropharynx normal Eyes Pupils: Equal, round and reactive pupils present and Pupil accommodation reflex normal EOM: EOMs intact bilaterally Neck Neck: Yes normal visual inspection, Yes no lymphadenopathy and Yes trachea midline Thyroid: Thyroid normal Carotids: no bruits Lymphatic: no lymphadenopathy noted Chest Chest palpation & inspection: normal inspection of the chest Resp Effort & Inspection: normal respiratory effort Auscultation: clear to auscultation bilaterally Cardio Rate: regular rate Rhythm: regular rhythm Heart sounds: S1 normal heart sound present, S2 normal heart sound present, no gallops, no murmurs and no rubs Bruits: no abdominal aortic bruits and no carotid bruits GI Palpation (GI): No Abdominal aortic bruit present, Soft to palpation, nontender, No hepatosplenomegaly present and No Rebound tenderness present Auscultation: normal bowel sounds General: Yes no CVA tenderness Back/Spine/Pelvis Back: no CVA tenderness Cervical Spine: cervical ROM normal and No Cervical spine tenderness Thoracic/Lumbar Spine: thoraco-lumbar ROM normal, No pain with thoraco-lumbar ROM, No thoracic spinal tenderness and No lumbar spinal tenderness Skin General: warm and dry. Normal skin color. Normal skin turgor Lesions: no lesions Rashes: no rashes Trauma: no lacerations or abrasions Wounds: no wounds Nails: normal Neuro General: patient oriented x3, gait normal and CN's II-XI intact bilaterally Cranial nerves: Yes Equal, round and reactive pupils present Cognition (Neuro): normal cognition Gait exam (Neuro): Normal gait present Motor exam (neuro): 5/5 motor strength present throughout Sensory Exam: No Sensory deficit (Neuro) Deep tendon reflexes (DTR's): Right patellar reflex intensity grade: 2+ and Left patellar reflex intensity grade: 2+ Extrem General: Yes normal to inspection, No edema and No calf tenderness Psych Appearance: grossly normal Affect: normal affect Attitude: cooperative Thought process: Normal thought process present Immunizations Boostrix Tdap 2.5 Lf unit-8 mcg-5 Lf/0.5 mL intramuscular syringe Performing Provider: Emma Joshua CNP Performing Location: [facility] Administered by: Oksana Ortega RN on 09/10/24 10:48 Dose Route Admin Location Dispensed Lot Number Expiration Date [facility] Biometrics Instructor 0.5 mL IM Left Deltoid 0.5 mL [id number] 10/13/26 [id number] Amplitude VIS Given Date VIS Provided VIS Publication Date 09/10/24 Single Vaccine 21 Eligibility Eligibility Date Funding Source Not [facility] Eligible 09/10/24 Private Coding Level of Care Code Est Pt Prev Care 18-39y(38495) Diagnoses Normal physical examination, routine Z00.00 Type 2 diabetes mellitus E11.9 Obesity (BMI 30-39.9) E66.9 GERD (gastroesophageal reflux disease) K21.9 Dyslipidemia E78.5 Primary hypertension I10 Hypertension type: primary hypertension Elevated ALT measurement R74.01 Engages in vaping Z72.89 Assessment & Plan Assessment & Plan (1) Normal physical examination, routine: Code(s): Z00.00 - Encounter for general adult medical examination without abnormal findings Category: Medical Plan: No significant functional limitation noted. (2) Type 2 diabetes mellitus: Code(s): E11.9 - Type 2 diabetes mellitus without complications Category: Medical Plan: Recent A1c is 4.9%, within goal of less than 7.0%. Semaglutide increased to 2 mg weekly. This was increased to 2 mg weekly in June; however, the patient has been receiving 1 mg weekly dose. According to the pharmacy semaglutide 2 mg she will be prescribed with 8 mg/3 mL rather than 4 mg/3 mL solution. Semaglutide 2 mg in 8 mg/3 mL ordered weekly; advised to take as prescribed. Follow-up on or after 10/09/2024 or sooner with symptoms or concerns. Verbalized understanding and agreed with treatment plan. (3) Obesity (BMI 30-39.9): Code(s): E66.9 - Obesity, unspecified Category: Medical Plan: He currently weighs 220 lb, BMI is 31.6. BMI in June was 30.9. He is on Ozempic for diabetes and weight management. Ozempic was increased from 1 mg to 2 mg weekly in June. However, he has been receiving 1 mg weekly refills from the pharmacy. Semaglutide 2 mg weekly ordered as recommended by pharmacy; advised to take as prescribed. Healthy diet and routine exercise encouraged. Follow-up in a month. Verbalized understanding and agreed with the plan. (4) GERD (gastroesophageal reflux disease): Code(s): K21.9 - Gastro-esophageal reflux disease without esophagitis Category: Medical Plan: Omeprazole as prescribed. (5) Dyslipidemia: Code(s): E78.5 - Hyperlipidemia, unspecified Category: Medical Plan: Recent triglycerides, total cholesterol, and LDL levels are normal, 67, 112, and 61 respectively. HDL level is slightly low, 38. Continue current treatment regimen. Advised to limit foods high in saturated fat and avoid foods high in trans fat. Routine exercise encouraged. Will monitor lipid panel levels in 6 months or sooner with related symptoms or concerns. Verbalized understanding and agreed with treatment plan. (6) Hypertension: Code(s): I10 - Essential (primary) hypertension Category: Medical Qualifiers: Hypertension type: primary hypertension Qualified Code(s): I10 - Essential (primary) hypertension Plan: Blood pressure is controlled, 120/80. His blood pressure has been diet controlled. Low-sodium diet encouraged. Will continue to monitor. Verbalized understanding and agreed with the plan. (7) Elevated ALT measurement: Code(s): R74.01 - Elevation of levels of liver transaminase levels Category: Medical Plan: Recent ALT is slightly elevated, 59. He has history of slightly elevated ALT level. Healthy diet, including low fat encouraged. Will check lipid panels periodically or if related symptoms. Verbalized understanding and agreed with treatment plan. (8) Engages in vaping: Code(s): Z72.89 - Other problems related to lifestyle Category: Medical Plan: He vapes nicotine daily and has been vaping for about a year. Instructed on the health risks and complications of nicotine and oil-based vaping and encouraged to stop. Declines treatment for nicotine dependence. He notes that his safely vapes. Encouraged to follow-up as needed. Verbalized understanding and agreed with treatment plan. Orders: Orders TDaP Immunization Today Z23 - Encounter for immunization Medications: New semaglutide 2 mg (0.75 mL) subcut QWEEK 4 weeks 3 mL 3RF Discontinued semaglutide Discontinued Reason: Doctor's Order 2 mg (1.5 mL) subcut QWEEK 4 weeks 6 mL 0RF
[2024-09-10 10:14] VITALS: BP 130/76; RESP 14; BMI 31.6
[2024-09-10 10:27] VITALS: BP 120/80
== END 2024-09-10 10:50 | disposition home or self-care (01) ==
PROVIDERS: PCP Nurse Practitioner Family; Visit Provider Nurse Practitioner Family
DX: Z00.00 Encounter for general adult medical examination without abnormal findings (principal); E11.9 Type 2 diabetes mellitus without complications; E66.9 Obesity, unspecified; Z68.31 Body mass index [BMI] 31.0-31.9, adult; K21.9 Gastro-esophageal reflux disease without esophagitis; E78.5 Hyperlipidemia, unspecified; I10 Essential (primary) hypertension; R74.01 Elevation of levels of liver transaminase levels; Z72.89 Other problems related to lifestyle; Z23 Encounter for immunization

== ENCOUNTER → 2024-09-10 10:05 | Outpatient (BNVA) | payer BC, SELFPAY | PROVIDERS: PCP Nurse Practitioner Family; Visit Provider Nurse Practitioner Family | DX: Z00.00 Encounter for general adult medical examination without abnormal findings (principal); Z23 Encounter for immunization; E11.9 Type 2 diabetes mellitus without complications; E66.9 Obesity, unspecified; Z68.31 Body mass index [BMI] 31.0-31.9, adult; K21.9 Gastro-esophageal reflux disease without esophagitis; E78.5 Hyperlipidemia, unspecified; I10 Essential (primary) hypertension; R74.01 Elevation of levels of liver transaminase levels; Z72.89 Other problems related to lifestyle; Z79.899 Other long term (current) drug therapy | CPT/HCPCS: 90471; 90715; 96127 ==

== ENCOUNTER 2024-10-12 10:52 | Outpatient (AMB) | payer BC, SELFPAY ==
--- NOTE | 2024-10-12 10:56 | A.OFFPC_ITS ---
Vital Signs 10/12/24 11:01 Height 5 ft 10 in Weight 209 lb BMI 30.0 BP 111/72 Blood Pressure Location Rt brachial Position Sitting Respiration 16 Pulse 72 Pulse Source Pulse Oximeter Temp 97.8 F Temp Source Oral Pulse Oximetry (%) 99 Oxygen Delivery Method Room Air Intake Visit Reasons: On/after 10/09/24 DM, wt management Intake Note: patient here for follow up on DM and wt management Cigar Brander Required: No Allergies Seasonal Allergies Allergy (Intermediate, Verified 10/12/24 10:58) Sneezing Tobacco use date assessed: 10/12/24 Dental Screening Dental Screen Date: 10/12/24 Did you have a dental visit in the last 12 months?: Yes Did you have a dental problem in the last 6 months where you did not have access to dental care?: No Was dental information given to patient?: Patient has dentist HPI HPI Comments History of Present Illness Details 38-year-old male presents for diabetes w eight management follow-up. Admits to taking semaglutide 2 mg weekly without adverse reactions. He has been making healthy lifestyle changes. He offers no complaints and denies acute symptoms at this time. [facility] Medical History (Updated 09/10/24 @ 10:53 by Emma Joshua CNP) No family history of mental disorder Peptic ulcer GERD (gastroesophageal reflux disease) IBS (irritable bowel syndrome) Sinusitis Type 2 diabetes mellitus Surgical History H/O endoscopy H/O colonoscopy No pertinent past surgical history Family History Father Hypertension Cardiovascular disease Paternal Grandfather Hypertension Maternal Grandfather Clotting disorder Social History Household Members: Spouse Housing: House 75 years or older and lives alone: No Alcohol intake: never Patient Tobacco Use Status: Former Tobacco user Cigarettes Per Day: 10 e-Cigarette/Vaping Use: Former Use service: No Current occupational status: employed Current occupation: [employer] Current occupational exposures/hazards: Yes Sexual orientation: Unable to collect Gender identity: Unable to collect Cognitive needs: No Hearing needs: No Vision needs: No (newly dx T2DM) Questionnaire Thrive Questionnaire Date Thrive assessed: 09/07/24 I am a: Patient What is your living situation today?: I have a steady place to live Within the past 12 months, did the food you bought not last and you didn't have the money to get more?: Never true Within the past 12 months, did you worry whether your food would run out before you got money to buy more?: Never true Do you have trouble paying for medicines?: No Do you have trouble getting transportation to medical appointments?: No Do you have trouble paying your heating and electricity bill?: No Do you have trouble taking care of your child, family member or friend?: No Do you have trouble with day-to-day activities such as bathing, preparing meals, shopping, managing finances, etc.?: No Are you currently unemployed and looking for a job?: No Are you interested in more education?: No Please select the resources that you would like help with: None Currently or been in a relationship where the following occur: No concerns reported THRIVE Score: 0 SANDY-7 AMB Questionnaire SANDY-7 Date SANDY - 7 assessed: 07/11/24 Source: Developed by Drs. Jameson Mina, Edna Hudson, Enio Egan and colleagues, with an educational mitra from [employer]. Review of Systems Const Details: Const Denies chills, Denies fatigue, Denies fever(s), Denies headache(s) and Denies weakness ENT Denies dizziness and Denies headache(s) Card Denies chest pain, Denies lightheadedness, Denies dyspnea and Denies other (Palpitations) Resp Denies cough, Denies dyspnea, Denies wheezing and Denies other ( shortness of breath) GI Denies abdominal pain, Denies melena, Denies hematochezia, Denies change in bowel habits, Denies dyspepsia and Denies nausea Denies hematuria and Denies dysuria Musc Denies abnormal gait, Denies myalgias, Denies arthralgias, Denies numbness and Denies tingling Skin/Breast Denies rash, Denies unusual bruising and Denies wounds Neuro Denies abnormal gait, Denies dizziness, Denies headache(s), Denies memory loss, Denies numbness, Denies Sensory deficit (Neuro), Denies tingling and Denies weakness Psych Denies anxiety, Denies depression, Denies memory loss Endo Denies cold intolerance, Denies fatigue, Denies heat intolerance, Denies polydipsia and Denies polyuria Aller/Immun Denies wheezing Physical exam (Primary Care) Tobacco/Smoking Status: Tobacco use Status Tobacco use date assessed 04/09/24 10/12/24 10:57 Patient Tobacco Use Status Former Tobacco user 10/12/24 10:57 e-Cigarette/Vaping Use Former Use 10/12/24 10:57 Thrive Assessment: Date of Thrive Assessment Date Thrive assessed 09/07/24 10/12/24 10:57 Currently or been in a relationship where the following occur: No concerns reported Const Other: General: no acute distress and well developed Nutritional Appearance: well nourished Orientation/consciousness: patient oriented x3 HENMT Head: Yes normocephalic and Yes atraumatic Eyes General: appearance normal, both eyes and all related structures Pupils: Equal, round and reactive pupils present EOM: EOMs intact bilaterally Resp Effort & Inspection: normal respiratory effort Auscultation: clear to auscultation bilaterally Cardio Rate: regular rate Rhythm: regular rhythm Heart sounds: S1 normal heart sound present, S2 normal heart sound present, no gallops, no murmurs and no rubs GI Palpation (GI): No Abdominal aortic bruit present, Soft to palpation, nontender, No hepatosplenomegaly present and No Rebound tenderness present Auscultation: normal bowel sounds General: Yes no CVA tenderness Back/Spine/Pelvis Back: no CVA tenderness Cervical Spine: cervical ROM normal and No Cervical spine tenderness Thoracic/Lumbar Spine: thoraco-lumbar ROM normal, No pain with thoraco-lumbar ROM, No thoracic spinal tenderness and No lumbar spinal tenderness Extrem General: Yes normal to inspection, No edema and No calf tenderness Skin General: warm and dry. Normal skin color. Normal skin turgor Neuro General: patient oriented x3, gait normal and no focal neuro deficit Cranial nerves: Yes Equal, round and reactive pupils present Cognition (Neuro): normal cognition Gait exam (Neuro): Normal gait present Sensory Exam: No Sensory deficit (Neuro) Psych Appearance: grossly normal Affect: normal affect Attitude: cooperative Thought process: Normal thought process present Results AMB Hemoglobin A1c AMB Hemoglobin A1c 4.7 % Last Edit by Suzi Mcginnis MA on 10/12/24 11:11 Coding Level of Care Code Est Pt Level 3 (86970) Diagnoses Type 2 diabetes mellitus E11.9 Obesity (BMI 30-39.9) E66.9 Primary hypertension I10 Hypertension type: primary hypertension Assessment & Plan Assessment & Plan (1) Type 2 diabetes mellitus: Code(s): E11.9 - Type 2 diabetes mellitus without complications Category: Medical Plan: A1c today is 4.7%, within goal of less than 7.0%. Previous A1c was 4.9%. Continue current treatment regimen. ADA diet and routine exercise encouraged. Follow-up in 3 months or sooner with symptoms or concerns. Verbalized understanding and agreed with treatment plan. (2) Obesity (BMI 30-39.9): Code(s): E66.9 - Obesity, unspecified Category: Medical Plan: He currently weighs 209 lb, BMI is 30.0. He lost 11 lb since his last visit. Continue current treatment regimen. Healthy diet and routine exercise encouraged. Follow-up in 3 months. Verbalized understanding and agreed with treatment plan. (3) Hypertension: Code(s): I10 - Essential (primary) hypertension Category: Medical Qualifiers: Hypertension type: primary hypertension Qualified Code(s): I10 - Essential (primary) hypertension Plan: Blood pressure is 111/72, within goal of less than 130/80. He has not currently on antihypertensives. Low-sodium diet encouraged. Will continue to monitor. Verbalized understanding and agreed with treatment plan. Orders: Orders AMB Hemoglobin A1c Today Z13.9 - Encounter for screening, unspecified
[2024-10-12 11:01] VITALS: BP 111/72; PULSE 72; RESP 16; TEMP 36.6; O2SAT 99
== END 2024-10-12 11:16 | disposition home or self-care (01) ==
LOC: HO.HMCFM 10:53
PROVIDERS: PCP Nurse Practitioner Family; Visit Provider Nurse Practitioner Family
DX: E11.9 Type 2 diabetes mellitus without complications (principal); E66.9 Obesity, unspecified; I10 Essential (primary) hypertension; Z68.30 Body mass index [BMI] 30.0-30.9, adult

== ENCOUNTER → 2024-10-12 10:52 | Outpatient (BNVA) | payer BC, SELFPAY | PROVIDERS: PCP Nurse Practitioner Family; Visit Provider Nurse Practitioner Family | DX: E11.9 Type 2 diabetes mellitus without complications (principal); I10 Essential (primary) hypertension; E66.9 Obesity, unspecified; Z68.30 Body mass index [BMI] 30.0-30.9, adult | CPT/HCPCS: 83036 ==

== ENCOUNTER 2024-12-13 11:31 | Outpatient (AMB) | payer BC, SELFPAY ==
--- OUTSIDE RECORDS SUMMARY | 2024-12-13 12:09 | XMS_ITS | Continuity of Care Document ---
Author Organization [facility] Address [address] [place] [id number] Insurance Providers Payer Plan Claims Address Claims Phone Policy Number Group Number Relation Employer Guarantor Name Guarantor Guarantor Address Guarantor Phone Blue [employer] PPO [id number] Self Jatin Leslie 1985 [address] [place], [place] [id number] Problems Condition ICD9 code ICD10 code SNOMED code Start Date End Date S tatus Encounter for screening for other metabolic disorders Z13.228 Results No Results Allergies, adverse reactions, alerts No known allergies and adverse reactions Medications No administered medications reported Vital Signs No vital signs reported Social History No smoking Hx information available
--- NOTE | 2024-12-13 13:34 | AM.OFFWIN_ITS ---
Intake Vital Signs 12/13/24 13:35 Weight 204 lb BP 110/80 Blood Pressure Location Rt brachial Position Sitting Pulse 70 Pulse Source Pulse Oximeter Pulse Oximetry (%) 96 Intake Visit Reasons: EP Burst hemorrhoid Intake Note: Patient here for rectal bleeding for the past 48hrs. Patient Tobacco Use Status: Former Tobacco user Allergies Seasonal Allergies Allergy (Intermediate, Verified 12/13/24 13:38) Sneezing Do you need a note to return to daycare/school/sports/work: Yes HPI HPI Comments History of Present Illness Details 39 y/o Male patient who presents to the walk in clinic with c/o Rectal bleeding for 2 days now. He has noticed small amount of bright red blood on toilet paper when wiping. He does have prior h/o Hemorrhoids and some occasional constipation. S/P EGD and Colonoscopy 2 years ago - found benign Polyp that was removed. [facility] Medical History (Updated 12/13/24 @ 14:00 by Alva Smith NP) Rectal bleeding No family history of mental disorder Peptic ulcer GERD (gastroesophageal reflux disease) IBS (irritable bowel syndrome) Sinusitis Type 2 diabetes mellitus Surgical History H/O endoscopy H/O colonoscopy No pertinent past surgical history Family History Father Hypertension Cardiovascular disease Paternal Grandfather Hypertension Maternal Grandfather Clotting disorder Social History Household Members: Spouse Housing: House 75 years or older and lives alone: No Alcohol intake: never Patient Tobacco Use Status: Former Tobacco user Cigarettes Per Day: 10 e-Cigarette/Vaping Use: Former Use service: No Current occupational status: employed Current occupation: [employer] Current occupational exposures/hazards: Yes Sexual orientation: Unable to collect Gender identity: Unable to collect Cognitive needs: No Hearing needs: No Vision needs: No (newly dx T2DM) Review of Systems Const All systems reviewed & are unremarkable except as noted in HPI and below Physical Exam Vital Signs: Last Vital Signs Pulse 70 12/13/24 13:35 BP 110/80 12/13/24 13:35 Pulse Ox 96 12/13/24 13:35 Const General: no acute distress Nutritional Appearance: well nourished Orientation/consciousness: patient oriented x3 GI Rectal Exam - Male: Yes deferred (By patient) General: Yes no CVA tenderness Back/Spine/Pelvis Back: no CVA tenderness Neuro General: patient oriented x3, gait normal and moves all extremities Psych Speech and movement: Normal speech and movement present Assessment & Plan Assessment & Plan (1) Rectal bleeding: Code(s): K62.5 - Hemorrhage of anus and rectum Plan: Ordered Hydrocortisone cream. F/U with GI. Medications: New hydrocortisone 2.5% 1 appl [place] BID PRN 30 grams 1RF hemorrhoids K62.5 - Hemorrhage of anus and rectum Coding Level of Care Code Est Pt Level 4 (10726) Diagnoses Rectal bleeding K62.5 Time Spent (min) 20
[2024-12-13 13:35] VITALS: BP 110/80; PULSE 70; O2SAT 96
== END 2024-12-13 14:09 | disposition home or self-care (01) ==
PROVIDERS: PCP Nurse Practitioner Family; Visit Provider Nurse Practitioner Family
DX: K62.5 Hemorrhage of anus and rectum (principal)

== ENCOUNTER → 2024-12-13 11:31 | Outpatient (BNVA) | payer BC, SELFPAY | PROVIDERS: PCP Nurse Practitioner Family; Visit Provider Nurse Practitioner Family | DX: Z13.89 Encounter for screening for other disorder (principal) ==

== ENCOUNTER 2025-01-14 11:36 | Outpatient (AMB) | payer BC, SELFPAY ==
--- NOTE | 2025-01-14 11:38 | A.OFFPC_ITS ---
Vital Signs 01/14/25 11:43 Height 5 ft 10 in Weight 200 lb BMI 28.7 BP 114/75 Blood Pressure Location Lt brachial Position Sitting Respiration 16 Pulse 86 Pulse Source Pulse Oximeter Temp 98.9 F Temp Source Oral Pulse Oximetry (%) 96 Oxygen Delivery Method Room Air Intake Visit Reasons: 3 mos DM, weight management Intake Note: patient her for 3 month follow up on DM and weight management Technical Operator Required: No Allergies Seasonal Allergies Allergy (Intermediate, Verified 01/14/25 11:53) Sneezing Medication List - Last Reconciled 01/14/25 by Emma Joshua CNP atorvastatin 10 mg PO DAILY 30 days blood sugar diagnostic (FreeStyle Lite Strips) As directed TID blood-glucose meter (FreeStyle Lite Meter kit) As directed flash glucose sensor (FreeStyle Estefanía 2 Sensor kit) As directed hydrocortisone 2.5% 1 appl [place] BID PRN lancets (FreeStyle Lancets) As directed 3x/day and prn semaglutide 2 mg (0.75 mL) subcut QWEEK 4 weeks Tobacco use date assessed: 01/14/25 Dental Screening Dental Screen Date: 01/14/25 Did you have a dental visit in the last 12 months?: Yes Did you have a dental problem in the last 6 months where you did not have access to dental care?: No Was dental information given to patient?: Patient has dentist HPI HPI Comments History of Present Illness Details 39-year-old male presents for diabetes w eight management follow-up. he admits to taking semaglutide 2 mg weekly without adverse reactions. He has been making healthy lifestyle changes. He lost 9 lb since his last visit. His goal is to weigh 180 lb. He offers no complaints and denies acute symptoms at this time. [facility] Medical History (Updated 12/13/24 @ 14:00 by Alva Smith NP) Rectal bleeding No family history of mental disorder Peptic ulcer GERD (gastroesophageal reflux disease) IBS (irritable bowel syndrome) Sinusitis Type 2 diabetes mellitus Surgical History H/O endoscopy H/O colonoscopy No pertinent past surgical history Family History Father Hypertension Cardiovascular disease Paternal Grandfather Hypertension Maternal Grandfather Clotting disorder Social History Household Members: Spouse Housing: House 75 years or older and lives alone: No Alcohol intake: never Patient Tobacco Use Status: Former Tobacco user Cigarettes Per Day: 10 e-Cigarette/Vaping Use: Former Use Second Hand Smoke Exposure: No service: No Current occupational status: employed Current occupation: [employer] Current occupational exposures/hazards: Yes Sexual orientation: Unable to collect Gender identity: Unable to collect Cognitive needs: No Hearing needs: No Vision needs: No (newly dx T2DM) Questionnaire Thrive Questionnaire Date Thrive assessed: 09/07/24 I am a: Patient What is your living situation today?: I have a steady place to live Within the past 12 months, did the food you bought not last and you didn't have the money to get more?: Never true Within the past 12 months, did you worry whether your food would run out before you got money to buy more?: Never true Do you have trouble paying for medicines?: No Do you have trouble getting transportation to medical appointments?: No Do you have trouble paying your heating and electricity bill?: No Do you have trouble taking care of your child, family member or friend?: No Do you have trouble with day-to-day activities such as bathing, preparing meals, shopping, managing finances, etc.?: No Are you currently unemployed and looking for a job?: No Are you interested in more education?: No Please select the resources that you would like help with: None Currently or been in a relationship where the following occur: No concerns reported THRIVE Score: 0 SANDY-7 AMB Questionnaire SANDY-7 Date SANDY - 7 assessed: 07/11/24 Source: Developed by Drs. Jameson Mina, Edna Hudson, Enio Egan and colleagues, with an educational mitra from [email or web address]. Review of Systems Const Details: Const Denies chills, Denies fatigue, Denies fever(s), Denies headache(s) and Denies weakness ENT Denies dizziness and Denies headache(s) Card Denies chest pain, Denies lightheadedness, Denies dyspnea and Denies other (Palpitations) Resp Denies cough, Denies dyspnea, Denies wheezing and Denies other ( shortness of breath) GI Denies abdominal pain, Denies melena, Denies hematochezia, Denies change in bowel habits, Denies dyspepsia and Denies nausea Denies hematuria and Denies dysuria Musc Denies abnormal gait, Denies myalgias, Denies arthralgias, Denies numbness and Denies tingling Skin/Breast Denies rash, Denies unusual bruising and Denies wounds Neuro Denies abnormal gait, Denies dizziness, Denies headache(s), Denies memory loss, Denies numbness, Denies Sensory deficit (Neuro), Denies tingling and Denies weakness Psych Denies anxiety, Denies depression, Denies memory loss Endo Denies cold intolerance, Denies fatigue, Denies heat intolerance, Denies polydipsia and Denies polyuria Aller/Immun Denies wheezing Physical exam (Primary Care) Vital Signs: Last Vital Signs Temp 98.9 F 01/14/25 11:43 Pulse 86 01/14/25 11:43 Resp 16 01/14/25 11:43 BP 114/75 01/14/25 11:43 Pulse Ox 96 01/14/25 11:43 Oxygen Delivery Method Room Air 01/14/25 11:43 BMI result Body Mass Index 28.7 Tobacco/Smoking Status: Tobacco use Status Tobacco use date assessed 01/14/25 01/14/25 11:46 Patient Tobacco Use Status Former Tobacco user 01/14/25 11:46 e-Cigarette/Vaping Use Former Use 01/14/25 11:46 Thrive Assessment: Date of Thrive Assessment Date Thrive assessed 09/07/24 01/14/25 11:46 Currently or been in a relationship where the following occur: No concerns reported Const Other: General: no acute distress and well developed Nutritional Appearance: well nourished Orientation/consciousness: patient oriented x3 HENMT Head: Yes normocephalic and Yes atraumatic Eyes General: appearance normal, both eyes and all related structures Pupils: Equal, round and reactive pupils present EOM: EOMs intact bilaterally Resp Effort & Inspection: normal respiratory effort Auscultation: clear to auscultation bilaterally Cardio Rate: regular rate Rhythm: regular rhythm Heart sounds: S1 normal heart sound present, S2 normal heart sound present, no gallops, no murmurs and no rubs GI Palpation (GI): No Abdominal aortic bruit present, Soft to palpation, nontender, No hepatosplenomegaly present and No Rebound tenderness present Auscultation: normal bowel sounds General: Yes no CVA tenderness Back/Spine/Pelvis Back: no CVA tenderness Cervical Spine: cervical ROM normal and No Cervical spine tenderness Thoracic/Lumbar Spine: thoraco-lumbar ROM normal, No pain with thoraco-lumbar ROM, No thoracic spinal tenderness and No lumbar spinal tenderness Extrem General: Yes normal to inspection, No edema and No calf tenderness Skin General: warm and dry. Normal skin color. Normal skin turgor Lesions: no lesions Rashes: no rashes Trauma: no lacerations or abrasions Wounds: no wounds Nails: normal Neuro General: patient oriented x3, gait normal and no focal neuro deficit Cranial nerves: Yes Equal, round and reactive pupils present Cognition (Neuro): normal cognition Gait exam (Neuro): Normal gait present Sensory Exam: No Sensory deficit (Neuro) Psych Appearance: grossly normal Affect: normal affect Attitude: cooperative Thought process: Normal thought process present Results AMB Hemoglobin A1c AMB Hemoglobin A1c 4.8 % Last Edit by Suzi Mcginnis MA on 01/14/25 12:07 Results Reviewed Results Reviewed: Laboratory Last Values Hgb A1c (Clinic) 4.8 % (4.0-6.0) 01/14/25 11:56 Coding Level of Care Code Est Pt Level 3 (53485) Diagnoses Type 2 diabetes mellitus E11.9 Obesity (BMI 30-39.9) E66.9 Assessment & Plan Assessment & Plan (1) Type 2 diabetes mellitus: Code(s): E11.9 - Type 2 diabetes mellitus without complications Category: Medical Plan: A1c today is 4.8%, within goal of less than 7.0%. Previous A1c was 4.7%. Continue current treatment regimen. ADA diet and routine exercise encouraged. Follow-up in 3 months or sooner with symptoms or concerns. Verbalized understanding and agreed with the treatment plan. (2) Obesity (BMI 30-39.9): Code(s): E66.9 - Obesity, unspecified Category: Medical Plan: He currently weighs 200 lb, BMI is 28.7. He lost 9 lb since his last visit. His goal is to weigh 180 lb. Continue current treatment regimen. Healthy diet and routine exercise encouraged. Follow-up in 6 months. May stop semaglutide if target weight is achieved before next appointment. Verbalized understanding and agreed with the plan. Orders: Orders AMB Hemoglobin A1c Today Z13.9 - Encounter for screening, unspecified
[2025-01-14 11:43] VITALS: BP 114/75; PULSE 86; RESP 16; TEMP 37.2; O2SAT 96; BMI 28.7
== END 2025-01-14 12:04 | disposition home or self-care (01) ==
LOC: HO.HMCFM 11:37
PROVIDERS: PCP Nurse Practitioner Family; Visit Provider Nurse Practitioner Family
DX: E11.9 Type 2 diabetes mellitus without complications (principal); E66.9 Obesity, unspecified; Z68.28 Body mass index [BMI] 28.0-28.9, adult

== ENCOUNTER → 2025-01-14 11:36 | Outpatient (BNVA) | payer BC, SELFPAY | PROVIDERS: PCP Nurse Practitioner Family; Visit Provider Nurse Practitioner Family | DX: E11.9 Type 2 diabetes mellitus without complications (principal); E66.9 Obesity, unspecified; Z68.28 Body mass index [BMI] 28.0-28.9, adult | CPT/HCPCS: 83036 ==

== ENCOUNTER → 2025-01-18 10:42 | Outpatient (REF) | payer BC, SELFPAY | LOC: HO.CARD 10:42 | PROVIDERS: PCP Nurse Practitioner Family; Visit Provider Nurse Practitioner Family | DX: R00.2 Palpitations (principal); I49.3 Ventricular premature depolarization | CPT/HCPCS: 93270 ==

== ENCOUNTER → 2025-01-18 10:45 | Outpatient (BNV) | payer BC, SELFPAY | PROVIDERS: PCP Nurse Practitioner Family; Visit Provider Internal Medicine | DX: R00.0 Tachycardia, unspecified (principal); I49.3 Ventricular premature depolarization | CPT/HCPCS: 93272 ==

== ENCOUNTER 2025-04-16 07:54 | Outpatient (AMB) | payer BC, SELFPAY ==
--- NOTE | 2025-04-16 07:58 | MHC.PC.OV ---
Vital Signs 04/16/25 08:02 Height 5 ft 10 in Weight 201 lb 4 oz BMI 28.9 BP 116/70 Blood Pressure Location Lt brachial Position Sitting Respiration 16 Pulse 108 H Pulse Source Pulse Oximeter Temp 97.5 F Temp Source Oral Pulse Oximetry (%) 100 Oxygen Delivery Method Room Air Intake Visit Reasons: mri request/spine issues Intake Note: patient here for MRI request c/o spine issues Collar Starcher Required: No Allergies Seasonal Allergies Allergy (Intermediate, Verified 04/16/25 08:07) Sneezing Medication List - Last Reconciled 04/16/25 by Emma Joshua CNP atorvastatin 10 mg PO DAILY 30 days blood sugar diagnostic (FreeStyle Lite Strips) As directed TID blood-glucose meter (FreeStyle Lite Meter kit) As directed flash glucose sensor (FreeStyle Estefanía 2 Sensor kit) As directed hydrocortisone 2.5% 1 appl [place] BID PRN lancets (FreeStyle Lancets) As directed 3x/day and prn semaglutide 2 mg (0.75 mL) subcut QWEEK 4 weeks Tobacco use date assessed: 04/16/25 Dental Screening Dental Screen Date: 04/16/25 Did you have a dental visit in the last 12 months?: Yes Did you have a dental problem in the last 6 months where you did not have access to dental care?: No Was dental information given to patient?: Patient has dentist HPI HPI Comments History of Present Illness Details 39-year-old male presents with complaints of upper back pain to his cervical and thoracic region, shoulders, biceps, triceps, elbows with radiation to forearms and 5th digits. He describes the pain as persistent muscles spasms/ ongoing for the past 1 months. The pain is 7/10 on the pain scale. He denies fall, injury, or trauma. He has been taking Ibuprofen 600mg daily as needed with no relief. He denies current pain, spasm, or any symptoms. He has been following a chiropractor who ordered an xray of his cervical spine and had it done [facility] about 3 weeks ago. He insisted that he wants an MRI. He requests a referral to orthopedics. [facility] Medical History (Updated 04/16/25 @ 08:18 by Emma Joshua CNP) Rectal bleeding No family history of mental disorder Peptic ulcer GERD (gastroesophageal reflux disease) IBS (irritable bowel syndrome) Sinusitis Type 2 diabetes mellitus Surgical History H/O endoscopy H/O colonoscopy No pertinent past surgical history Family History Father Hypertension Cardiovascular disease Paternal Grandfather Hypertension Maternal Grandfather Clotting disorder Social History Household Members: Spouse Housing: House 75 years or older and lives alone: No Alcohol intake: never Patient Tobacco Use Status: Former Tobacco user Cigarettes Per Day: 10 e-Cigarette/Vaping Use: Former Use Second Hand Smoke Exposure: No service: No Current occupational status: employed Current occupation: [employer] Current occupational exposures/hazards: Yes Sexual orientation: Unable to collect Gender identity: Unable to collect Cognitive needs: No Hearing needs: No Vision needs: No (newly dx T2DM) Questionnaire Thrive Questionnaire Date Thrive assessed: 09/07/24 I am a: Patient What is your living situation today?: I have a steady place to live Within the past 12 months, did the food you bought not last and you didn't have the money to get more?: Never true Within the past 12 months, did you worry whether your food would run out before you got money to buy more?: Never true Do you have trouble paying for medicines?: No Do you have trouble getting transportation to medical appointments?: No Do you have trouble paying your heating and electricity bill?: No Do you have trouble taking care of your child, family member or friend?: No Do you have trouble with day-to-day activities such as bathing, preparing meals, shopping, managing finances, etc.?: No Are you currently unemployed and looking for a job?: No Are you interested in more education?: No Please select the resources that you would like help with: None Currently or been in a relationship where the following occur: No concerns reported THRIVE Score: 0 SANDY-7 AMB Questionnaire SANDY-7 Date SANDY - 7 assessed: 07/11/24 Source: Developed by Drs. Jameson Mina, Edna Hudson, Enio Egan and colleagues, with an educational mitra from [employer]. Review of Systems Const Details: Const Denies chills, Denies fatigue, Denies fever(s), Denies headache(s) and Denies weakness ENT Denies dizziness and Denies headache(s) Card Denies chest pain, Denies lightheadedness, Denies dyspnea and Denies other (Palpitations) Resp Denies cough, Denies dyspnea, Denies wheezing and Denies other ( shortness of breath) GI Denies abdominal pain, Denies melena, Denies hematochezia, Denies change in bowel habits, Denies dyspepsia and Denies nausea Denies hematuria and Denies dysuria Musc Reports as per HPI Skin/Breast Denies rash, Denies unusual bruising and Denies wounds Neuro Denies abnormal gait, Denies dizziness, Denies headache(s), Denies memory loss, Denies numbness, Denies Sensory deficit (Neuro), Denies tingling and Denies weakness Psych Denies anxiety, Denies depression, Denies memory loss Endo Denies cold intolerance, Denies fatigue, Denies heat intolerance, Denies polydipsia and Denies polyuria Aller/Immun Denies wheezing Physical exam (Primary Care) Tobacco/Smoking Status: Tobacco use Status Tobacco use date assessed 01/14/25 01/14/25 11:46 Patient Tobacco Use Status Former Tobacco user 01/14/25 11:46 e-Cigarette/Vaping Use Former Use 01/14/25 11:46 Thrive Assessment: Date of Thrive Assessment Date Thrive assessed 09/07/24 01/14/25 11:46 Currently or been in a relationship where the following occur: No concerns reported Const Other: General: no acute distress and well developed Nutritional Appearance: well nourished Orientation/consciousness: patient oriented x3 HENMT Head: Yes normocephalic and Yes atraumatic Eyes General: appearance normal, both eyes and all related structures Pupils: Equal, round and reactive pupils present EOM: EOMs intact bilaterally Resp Effort & Inspection: normal respiratory effort Auscultation: clear to auscultation bilaterally Cardio Rate: regular rate Rhythm: regular rhythm Heart sounds: S1 normal heart sound present, S2 normal heart sound present, no gallops, no murmurs and no rubs GI Palpation (GI): No Abdominal aortic bruit present, Soft to palpation, nontender, No hepatosplenomegaly present and No Rebound tenderness present Auscultation: normal bowel sounds General: Yes no CVA tenderness Back/Spine/Pelvis Back: no CVA tenderness Cervical Spine: cervical ROM normal and No Cervical spine tenderness Thoracic/Lumbar Spine: thoraco-lumbar ROM normal, No pain with thoraco-lumbar ROM, No thoracic spinal tenderness and No lumbar spinal tenderness Extrem General: Yes normal to inspection, No edema and No calf tenderness Skin General: warm and dry. Normal skin color. Normal skin turgor Neuro General: patient oriented x3, gait normal and no focal neuro deficit Cranial nerves: Yes Equal, round and reactive pupils present Cognition (Neuro): normal cognition Gait exam (Neuro): Normal gait present Sensory Exam: No Sensory deficit (Neuro) Psych Appearance: grossly normal Affect: normal affect Attitude: cooperative Thought process: Normal thought process present Coding Level of Care Code Est Pt Level 4 (04789) Diagnoses Muscle pain M79.10 Assessment & Plan Assessment & Plan (1) Muscle pain: Code(s): M79.10 - Myalgia, unspecified site Category: Medical Plan: Reports persistent muscle spasms to his cervical and thoracic region, shoulders, biceps, triceps, elbows with radiation to forearms and 5th digits for the past 1 month. No acute symptoms at this time. Normal physical exam. X-ray of cervical spine on 02/28/2025 from [facility] reviewed and normal. Cyclobenzaprine 10 mg twice daily as needed ordered; advised to take as prescribed. Instructed on the risks, benefits, and potential adverse reactions of the medication. May take ibuprofen or Tylenol as needed for pain or discomfort. Warm/cool compresses encouraged. Advised to avoid sports or strenuous exercises until healed. Will check ESR for inflammation. Referred to [facility]. Return with worsening symptoms. Verbalized understanding and agreed with the plan. Orders: Orders Erythrocyte Sedimentation Rate Today M79.10 - Myalgia, unspecified site Referrals Orthopedics Referral M79.10 - Myalgia, unspecified site Medications: New cyclobenzaprine 10 mg PO BID PRN 20 tabs 0RF muscle spasm
--- OUTSIDE RECORDS SUMMARY | 2025-04-16 07:58 | XMS_ITS ---
Author Name [facility] Organization Unknown Care Team Organization Name Specialty Phone Email [facility] Date [facility]
--- OUTSIDE RECORDS SUMMARY | 2025-04-16 07:58 | XMS_ITS | Patient Health Record ---
Author Organization Formerly [facility] [employer] [facility] Address [address] [place] [address] Care Team Providers Care Windows Server Specialist Name Role Phone Bolivar Jerez Primary Care Provider [phone] Reason For Referral No Information Medications Medication SIG (Take, Route, Frequency, Duration) Notes Start Date End Date Status Semaglutide (2 MG/DOSE) 8 MG/3ML as directed Subcutaneous Act edgar Atorvastatin Calcium 10 MG 1 tablet Orally Once a day Active Problems Problem Type SNOMED Code ICD Code Onset Dates Problem Status W/U Status Risk Notes Problem Ventricular premature depolarization (755877787) Premature ventricular beat (I49.3) Active confirmed Problem Type II diabetes mellitus without complication (513338733) DM type 2, goal HbA1c < 7% (E11.9) Active confirmed Encounters Encounter Location Date Provider Diagnosis [address] [address] 01/22/2025 Bolivar Jerez DM type 2, goal HbA1c < 7% E11.9 Assessments Encounter Date Diagnosis (ICD Code) Assessment Notes Treatment Notes Treatment Clinical Notes Section Notes 01/22/2025 DM type 2, goal HbA1c < 7% (ICD-10 - E11.9) 01/22/2025 Other . Plan Of Treatment Pending Test Test Name Order Date Hemoglobin A1c 496 01/22/2025 Microalbumin,[facility] (w/creat) 6517 07/0 07/2024 Lipid Panel w/refl LDL 03039 01/22/2025 Insurance Providers Payer Name Payer Address Payer Phone Subscriber Number Group Number Insured Name Patient Relationship to Insured Coverage Start Date Coverage End Date [place] [employer] - Medical / MH [address] [place] [address] [id number] Jatin Leslie Self - patient is the insured
--- OUTSIDE RECORDS SUMMARY | 2025-04-16 07:58 | XMS_ITS | Continuity of Care Document ---
Author Organization [facility] Address [address] [place] [address] Insurance Providers Payer Plan Claims Address Claims Phone Policy Number Group Number Relation Employer Guarantor Name Guarantor Guarantor Address Guarantor Phone Blue Cross PPO [id number] Self Jatin Leslie 1985 [address], [place] [id number] Problems Condition ICD9 code ICD10 code SNOMED code Start Date End Date S tatus Encounter for screening for other metabolic disorders Z13.228 Results No Results Allergies, adverse reactions, alerts No known allergies and adverse reactions Medications No administered medications reported Vital Signs No vital signs reported Social History No smoking Hx information available
--- OUTSIDE RECORDS SUMMARY | 2025-04-16 07:58 | XMS_ITS | Continuity of Care Document ---
Author Organization [facility] Address [address] [place] [address] Insurance Providers Payer Plan Claims Address Claims Phone Policy Number Group Number Relation Employer Guarantor Name Guarantor Guarantor Address Guarantor Phone Blue Cross PPO [id number] Self Jatin Leslie 1985 [address] [place], [place] [id number] Problems Condition ICD9 code ICD10 code SNOMED code Start Date End Date S tatus Encounter for screening for other metabolic disorders Z13.228 Results No Results Allergies, adverse reactions, alerts No known allergies and adverse reactions Medications No administered medications reported Vital Signs No vital signs reported Social History No smoking Hx information available
[2025-04-16 08:02] VITALS: BP 116/70; PULSE 108; RESP 16; TEMP 36.4; O2SAT 100; BMI 28.9
== END 2025-04-16 08:26 | disposition home or self-care (01) ==
LOC: HO.HMCFM 07:55
PROVIDERS: PCP Nurse Practitioner Family; Visit Provider Nurse Practitioner Family
DX: M79.10 Myalgia, unspecified site (principal)

== ENCOUNTER → 2025-04-19 10:33 | Outpatient (REF) | payer BC, SELFPAY ==
--- NOTE | 2025-04-19 10:37 | CA_ITS ---
Transthoracic Echocardiogram Patient (Last, First, Middle): Jatin Leslie, Gender: Male Date of : 1985 Age: 39 Procedure Date: 04/19/2025 Procedure Type: Transthoracic Echocardiogram Location: OP Height: 177.8 cm Weight: 91.17 kg BSA: 2.09 m2 Heart Rate: bpm BP: 116 / 70 mmHg Facepiece Line Supervisor: SB Referring MD: Nico Cota MD Symptoms: I49.3 - Ventricular premature depolarization Study Quality: Technically Difficult, contrast Conclusions: - Normal left ventricular size, thickness, systolic function, and wall motion. The visually estimated ejection fraction is between 55-60%. Diastolic function is normal for age. - Normal right ventricular cavity size and systolic function. Findings Procedure Information Contrast agent, definity, is being given per protocol without apparent complications. The study quality is limited by lung artifact. Left Ventricle Normal left ventricular size, thickness, systolic function, and wall motion. The visually estimated ejection fraction is between 55-60%. Diastolic function is normal for age. Right Ventricle Normal right ventricular cavity size and systolic function. Atria Both atria are normal in size. Aortic Valve Normal aortic valve structure and function. There is no aortic valve stenosis. There is no aortic valve regurgitation. Mitral Valve Normal mitral valve structure and function. There is no mitral valve regurgitation. There is no mitral valve stenosis. Pulmonic Valve The pulmonic valve is likely normal. Tricuspid Valve Normal tricuspid valve structure. There is no tricuspid valve regurgitation. Normal right atrial pressure. There is no evidence of pulmonary hypertension. Great Vessels All visible segments of the aorta are normal in size. Venous The inferior vena cava is normal in size and collapses greater than 50% with inspiration. Pericardium/Pleural There is no evidence of pericardial effusion. Prior Study Comparison No significant change compared to prior study dated: 04/17/2024. Measurements 2D Linear Measurements IVSd: 0.75 0.6-0.9/0.6-1.0 cm LVIDd: 5.27 3.9-5.3/4.2-5.9 cm LVIDd Index: 2.52 2.4-3.2/2.2-3.1 cm/m2 LVIDs: 3.50 2.0-3.6 cm LVPWd: 0.77 0.7-1.1 cm LA Diam: 3.10 2.7-3.8/3.0-4.0 cm LAIDs Index: 1.48 1.5-2.3 cm/m2 LV Mass: 173.35 67-162/88-224 g LV Mass Index: 82.94 43-95/49-115 g/m2 LVOT Diam: 2.20 3.0+(-)1.3 cm 2D Systolic Function EF 4C: 58.90 >55% EF 2C: 57.10 >55% EF BiP: 58.20 >55% Mitral Valve MV Pk E: 0.72 MV PK A: 0.60 MV Decel Time: 186.00 E/A: 1.20 E'Lateral: 11.90 E'Medial: 9.68 E/E' Med: 7.40 E/E' Lat: 6.10 PHT: 55.00 MVA PHT: 4.00 Decel [place]: 3.86 Aortic Valve AoV Pk Isaac: 1.03 AoV Pk Grad: 4.00 LVOT LVOT Pk Isaac: 0.87 LVOT Mn Isaac: 0.65 LVOT VTI: 0.16 LVOT Pk Grad: 3.00 LVOT Mn Grad: 2.00 LVOT Diam: 2.20 LVOT Area: 3.80 Diastolic Function MV Pk E: 0.72 MV Pk A: 0.60 E/A: 1.20 E'Medial: 9.68 E/E' Med: 7.40 E' Laterial: 11.90 E/E' Lat: 6.10 Right Ventricle TAPSE (mm): 17.80 TVS' Isaac: 11.90 Great Vessels Aorta Sinus of Valsalva: 3.20 2.0-3.5 cm Ao Asc: 2.60 2.1-3.4 cm Ao Arch: 2.30 Pulmonary Valve PV Pk Isaac: 0.88 Peak PV Grad: 3.00 Updated in Other Vendor System with Status of Final Tommy Harmon MD electronically signed on 04/21/2025 10:50:55 PM with status of Final
--- OUTSIDE RECORDS SUMMARY | 2025-04-19 12:05 | XMS_ITS | Patient Health Record ---
Author Organization Formerly [facility] [employer] [facility] Address [address] [place] [address] Care Team Providers Care Caser Name Role Phone Bolivar Jerez Primary Care Provider [phone] Reason For Referral No Information Medications Medication SIG (Take, Route, Frequency, Duration) Notes Start Date End Date Status Semaglutide (2 MG/DOSE) 8 MG/3ML as directed Subcutaneous Act edgar Atorvastatin Calcium 10 MG 1 tablet Orally Once a day Active Problems Problem Type SNOMED Code ICD Code Onset Dates Problem Status W/U Status Risk Notes Problem Ventricular premature depolarization (918164882) Premature ventricular beat (I49.3) Active confirmed Problem Type II diabetes mellitus without complication (225894322) DM type 2, goal HbA1c < 7% (E11.9) Active confirmed Encounters Encounter Location Date Provider Diagnosis [address] [address] 01/22/2025 Bolivar Jerez DM type 2, goal HbA1c < 7% E11.9 Assessments Encounter Date Diagnosis (ICD Code) Assessment Notes Treatment Notes Treatment Clinical Notes Section Notes 01/22/2025 DM type 2, goal HbA1c < 7% (ICD-10 - E11.9) 01/22/2025 Other . Plan Of Treatment Pending Test Test Name Order Date Hemoglobin A1c 496 01/22/2025 Microalbumin,[facility] (w/creat) 6517 07/0 07/2024 Lipid Panel w/refl LDL 24399 01/22/2025 Insurance Providers Payer Name Payer Address Payer Phone Subscriber Number Group Number Insured Name Patient Relationship to Insured Coverage Start Date Coverage End Date [employer] - Medical / MH [address] [place] [address] [id number] Jatin Leslie Self - patient is the insured
== END ==
LOC: HO.CARD 10:33
PROVIDERS: PCP Nurse Practitioner Family; Visit Provider Internal Medicine
DX: I49.3 Ventricular premature depolarization (principal)
CPT/HCPCS: 93306; Q9957

== ENCOUNTER → 2025-04-19 10:37 | Outpatient (BNV) | payer BC, SELFPAY | PROVIDERS: PCP Nurse Practitioner Family; Visit Provider Internal Medicine Cardiovascular Disease | DX: R94.31 Abnormal electrocardiogram [ECG] [EKG] (principal) | CPT/HCPCS: 93306 ==

== ENCOUNTER 2025-05-08 09:26 | Outpatient (AMB) | payer BC, SELFPAY ==
--- NOTE | 2025-05-08 09:39 | A.OFFVIS_ITS ---
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 Required: No Accompanied by: Self / Same As Patient Allergies Seasonal Allergies Allergy (Intermediate, Verified 04/16/25 08:07) Sneezing Medication List - Last Reconciled 05/08/25 by Nico Cota MD atorvastatin 10 mg PO DAILY 30 days blood sugar diagnostic (FreeStyle Lite Strips) As directed TID blood-glucose meter (FreeStyle Lite Meter kit) As directed cyclobenzaprine 10 mg PO BID PRN flash glucose sensor (FreeStyle Estefanía 2 Sensor kit) As directed hydrocortisone 2.5% 1 appl ID BID PRN lancets (FreeStyle Lancets) As directed 3x/day and prn semaglutide 2 mg (0.75 mL) subcut QWEEK 4 weeks HPI Comments Details: Jatin returns for follow-up. Originally seen in consultation regarding premature ventricular contractions. In the past, has seen [facility] but has since switched. He has had palpitations for many years. Thought to be from PVCs. He has tried beta-blockers but got dizzy and does not take it anymore. Has lost lot of weight-almost 80 lb in the last couple of years. Had diabetes but it seems that hemoglobin A1c has normalized after weight loss.. Was also on lisinopril but not on it anymore. Calcium scoring CT scan was mildly positive and taking statins for that. Overall, he is just about the same as before. Sometimes he feels palpitations but other times not. Otherwise, getting along fine. No physical limitations. [facility] Medical History Rectal bleeding No family history of mental disorder Peptic ulcer GERD (gastroesophageal reflux disease) IBS (irritable bowel syndrome) Sinusitis Type 2 diabetes mellitus Surgical History H/O endoscopy H/O colonoscopy No pertinent past surgical history Family History Father Hypertension Cardiovascular disease Paternal Grandfather Hypertension Maternal Grandfather Clotting disorder Social History Household Members: Spouse Housing: House 75 years or older and lives alone: No Alcohol intake: never Patient Tobacco Use Status: Former Tobacco user Cigarettes Per Day: 10 e-Cigarette/Vaping Use: Former Use Second Hand Smoke Exposure: No service: No Current occupational status: employed Current occupation: [employer] Current occupational exposures/hazards: Yes Sexual orientation: Unable to collect Gender identity: Unable to collect Cognitive needs: No Hearing needs: No Vision needs: No (newly dx T2DM) Review of Systems Const Denies chills, Denies fatigue, Denies fever(s), Denies frequent falls, Denies weakness, Denies weight gain and Denies weight loss ENT Denies dizziness Card Denies chest pain, Denies leg edema, Denies lightheadedness, Denies palpitations, Denies dyspnea and Denies dyspnea on exertion Resp Denies cough, Denies dyspnea and Denies dyspnea on exertion GI Denies hematochezia Musc Denies abnormal gait, Denies muscle weakness, Denies numbness, Denies radiating pain into limb and Denies tingling Neuro Denies abnormal gait, Denies dizziness, Denies frequent falls, Denies numbness, Denies tingling and Denies weakness Endo Denies fatigue and Denies palpitations Physical Exam Vital Signs: Last Vital Signs Pulse 73 05/08/25 09:43 BP 110/70 05/08/25 09:43 BMI result Body Mass Index 29.0 Const General: comfortable and no acute distress Orientation/consciousness: patient oriented x3 HEENT Other: Unremarkable Head: Yes normal to inspection Neck Neck: Yes normal visual inspection Chest Chest palpation & inspection: normal inspection of the chest Resp Auscultation: clear to auscultation bilaterally Cardio Palpation: normal PMI Heart sounds: S1 normal heart sound present, S2 normal heart sound present, no gallops, no murmurs and no rubs GI Palpation (GI): Soft to palpation Back/Spine/Pelvis Other: unremarkable Skin General skin exam: no rashes or lesions noted Neuro General: patient oriented x3 Extrem General: Yes normal to inspection Psych Mental Status: mental status grossly normal Office Procedures EKG Details: EKG with underlying sinus rhythm at 73/Min; no ischemic changes; [place] [address]-[id number], Complete Assessment & Plan Assessment & Plan (1) PVC (premature ventricular contraction): Code(s): I49.3 - Ventricular premature depolarization Category: Medical (2) Coronary artery calcification seen on CAT scan: Code(s): I25.10 - Atherosclerotic heart disease of [place] coronary artery without angina pectoris Category: Medical Plan Cardiac studies reviewed. Calcium scoring CT scan from 11/2023. LAD score 12.5. Left main, circumflex, RCA-0. Total score is 12.5. In the recent echocardiogram, LVEF 55-60%. No significant valvular findings. In the stress test, he was able to do 13.4 METS; no angina, increase in PVCs or EKG findings of ischemia. In the Holter, underlying rhythm is sinus with PVC burden of 0.43%. During sleep hours, evidence of junctional tachycardia, 1 episode. In the recent 30 day monitor, again low levels of supraventricular/ventricular ectopy. In the sleep study, excessive snoring, about 48% of the time but no obstructive sleep apnea. He does have rare PVCs, but it seems that he is quite symptomatic when he gets them. Has tried beta-blockers but had side effects and stopped. Could be due to low blood pressure. He can try a small dose of diltiazem to see if that helps. Again, mainly to use as needed and not regularly. With regard to the coronary calcification, already on statins. Discussion Notes We discussed the management of the patient's PVCs, noting the low burden but significant perception of symptoms. The patient has tried beta-blockers like metoprolol, which caused dizziness, and we considered alternative options such as diltiazem. The patient's Type 2 Diabetes Mellitus is in remission, and he is managing his weight effectively with semaglutide therapy. Patient was informed and verbally consented to the use of an ambient scribe for clinic note documentation during this visit. Total time spent including review of data, counseling, documentation coordination of care-32 minutes. Medications: New diltiazem HCl (Cardizem) 30 mg PO TID PRN 100 tabs 1RF palpitations 90 days Patient Instructions: - Monitor symptoms of PVCs and report any significant changes. Coding Level of Care Code Est Pt Level 4 (09889) Complex EM visit Add On G2211 Diagnoses PVC (premature ventricular contraction) I49.3 Coronary artery calcification seen on CAT scan I25.10 CPT Codes EKG - CPT: 53932-[id number], Complete ([id number])
[2025-05-08 09:43] VITALS: BP 110/70; PULSE 73; BMI 29.0
--- OUTSIDE RECORDS SUMMARY | 2025-05-08 10:42 | XMS_ITS | Patient Health Record ---
Author Organization Formerly [facility] Address [address] [place] [address] Care Team Providers Care Risk Control Product Liability Director Name Role Phone Bolivar Jerez Primary Care Provider Reason For Referral No Information Medications Medication SIG (Take, Route, Frequency, Duration) Notes Start Date End Date Status Semaglutide (2 MG/DOSE) 8 MG/3ML Solution Pen-injector as directed Subcutaneous Act edgar Atorvastatin Calcium 10 MG Tablet 1 tablet Orally Once a day A ctive Social History Social History Social History Social Info Question Answer Notes Alcohol Did you have a drink containing alcohol i n the past year? No Points 0 Interpretation Negative Problems Problem Type SNOMED Code ICD Code Onset Dates Problem Status W/U Status Risk Notes Problem Ventricular premature depolarization (475768849) Premature ventricular beat (I49.3) Active confirmed Problem Type II diabetes mellitus without complication (273544218) DM type 2, goal HbA1c < 7% (E11.9) Active confirmed Encounters Encounter Location Date Provider Diagnosis [address] [address] 01/22/2025 Bolivar Jerez DM type 2, goal HbA1c < 7% E11.9 Assessments Encounter Date Diagnosis (ICD Code) Assessment Notes Treatment Notes Treatment Clinical Notes Section Notes 01/22/2025 DM type 2, goal HbA1c < 7% (ICD-10 - E11.9) 01/22/2025 Other . Plan Of Treatment Pending Test Test Name Order Date Hemoglobin A1c 496 01/22/2025 Microalbumin,[facility] (w/creat) 6517 07/2024 Lipid Panel w/refl LDL 71335 01/22/2025 Insurance Providers Payer Name Payer Address Payer Phone Subscriber Number Group Number Insured Name Patient Relationship to Insured Coverage Start Date Coverage End Date [employer] - Medical / [address] [place] [address] [phone] [id number] Jatin Leslie Self - patient is the insured
== END 2025-05-08 10:08 | disposition home or self-care (01) ==
LOC: HO.HCS 09:27
PROVIDERS: PCP Nurse Practitioner Family; Visit Provider Internal Medicine
DX: I49.3 Ventricular premature depolarization (principal); I25.10 Atherosclerotic heart disease of native coronary artery without angina pectoris
CPT/HCPCS: 93010; 99214

== ENCOUNTER → 2025-05-08 09:26 | Outpatient (BNVA) | payer BC, SELFPAY | PROVIDERS: PCP Nurse Practitioner Family; Visit Provider Internal Medicine | DX: I49.3 Ventricular premature depolarization (principal); I25.10 Atherosclerotic heart disease of native coronary artery without angina pectoris | CPT/HCPCS: 93005 ==